=== PATIENT | male | born 1945 | race Caucasian/White ===

== ENCOUNTER 2025-01-25 18:06 | Inpatient (IN) | payer MEDICARE, OTHER, SELFPAY ==
[2025-01-25] VITALS (16 sets, daily range): BP systolic 93–193; BP diastolic 45–120; BMI 22.9
[2025-01-25 16:08] LABS: Glucose - Point of Care 149 mg/dl (70-99)
--- NOTE | 2025-01-25 16:18 | EDRN ---
Propofol drip 20 mcg.
[2025-01-25] MEDS: VERSED 2 MG IV (16:24)
[2025-01-25] MEDS: SUBLIMAZE 75 MCG IV (16:24)
[2025-01-25] MEDS: DIPRIVAN 100 IV (16:25)
[2025-01-25 16:29] LABS: % Basophils 0.5 % (0-2); % Eosinophils 1.9 % (0-6); % Immature Granulocytes 3.1 % (0-0.5); % Lymphocytes 26.4 % (20.5-51.1); % Monocytes 5.3 % (1.7-9.3); % Neutrophils 62.8 % (42.2-75.2); Absolute Basophils 0.1 10^3/uL (0-0.2); Absolute Eosinophils 0.5 10^3/uL (0-0.7); Absolute Immature Granulocytes 0.8 10^3/uL (0-0.05); Absolute Lymphocytes 6.4 10^3/uL (1.2-3.4); Absolute Monocytes 1.3 10^3/uL (0.1-0.6); Absolute Neutrophils 15.3 10^3/uL (1.4-6.5); Hematocrit 42.9 % (39.0-52.0); Hemoglobin 13.7 g/dL (13.0-18.0); Mean Corp Hgb Conc. 31.9 g/dL (33.0-37.0); Mean Corpuscular Hgb 29.1 pg (27.0-31.0); Mean Corpuscular Volume 91.3 fL (80.0-94.0); Mean Platelet Volume 10.8 fL (7.4-10.4); Nucleated Red Blood Cells % 0 % (-); Platelet Count 238 10^3/uL (130-400); Red Cell Dist. Width 15.2 % (11.5-14.5); White Blood Cell Count 24.4 10^3/uL (4.8-10.8)
--- NOTE | 2025-01-25 16:41 | ED.GENMED ---
History of Present Illness
General
Chief Complaint: CODE
Source: ambulance crew
Exam Limitations: clinical condition
Time Seen by Provider: 01/25/25 16:17
History of Present Illness
History of Present Illness:
Patient was on a treadmill apparently fell backwards collapsed hit his head and was unresponsive. A defibrillator was placed which recommended shock. After the shock patient had a pulse and a blood pressure became alert although quiet and not
responding. En route to the hospital became very combative. No other history available.
Past History
Past History
ED Past Medical History: CAD
ED Past Surgical History: Orthopedic and Urological
Phy Exam
Physical Exam
Physical Exam:
GENERAL: Nasal trumpet in place. Very combative. Some clear nasal discharge. Collar in place.
EYE: Orbits normal.
NECK: Collar in place
CARDIAC: Regular rate and rhythm without any obvious murmurs.
LUNGS: Clear breath sounds,normal
ABDOMEN: Soft, without focal tenderness or distention
NEUROLOGICAL: Grossly nonfocal. Moving all extremities. Thrashing around. No response to verbal commands.
SKIN: Warm and dry, abrasion to the lower leg.
MUSCULOSKELETAL: No edema,no deformity.Good color
Course
Orders/Labs/Results
Orders:
Orders
01/25/25 16:05
ECG [Electrocardiogram (*1)] Urgent
Reason for Study: CAD
Other Reason for Exam: post defib
CT Head W/o Iv Contrast Urgent
Comment:
Reason For Exam: Post code
01/25/25 16:06
EKG- Treatment ONCE
01/25/25 16:07
Propofol 1,000,000 Mcg/100 ml [Diprivan] 1,000,000 mcg in 100 ml .ROUTE .STK-MED
Propofol [Diprivan] 20 ml .ROUTE .STK-MED
01/25/25 16:10
Midazolam HCl [Versed] 2 mg .ROUTE .STK-MED ONE
01/25/25 16:14
Cr Chest Portable [CR Chest Portable - 1 View] Stat
Comment:
Reason For Exam: intubation
Reason Study Needs to be Portable: Patient Unstable
01/25/25 16:15
CT Cervical Spine W/o Iv Contr Urgent
Comment:
Reason For Exam: fall/CODE
Midazolam HCl [Versed] 2 mg IV NOW STA
01/25/25 16:16
Fentanyl Citrate/Pf [Sublimaze] 75 mcg IV NOW STA
01/25/25 16:22
ABG [Arterial Blood Gas] Urgent
%Oxygen/Room Air: 50/ac14/5/450
Complete Blood Count/With Diff Urgent
Comprehensive Metabolic Panel Urgent
Glycohemoglobin (HgbA1c) Urgent
Troponin I Urgent
01/25/25 16:25
CT Chest W/o Iv Contrast Urgent
Comment:
Reason For Exam: sp cardiac arrest
01/25/25 16:30
Propofol 1,000,000 Mcg/100 ml [Diprivan] 1,000,000 mcg in 100 ml IV PER PROTOCOL
01/25/25 17:00
FentaNYL 1,000 MCG/100 ML [Sublimaze] 1,000 mcg in 100 ml IV PER PROTOCOL
Fentanyl Citrate/Pf [Sublimaze] 50 mcg IV [id number] PRN
01/25/25 17:04
Add On- LAB Routine
Tests Added?: Hgba1c
01/25/25 17:09
Fentanyl Citrate/Pf [Sublimaze] 100 mcg .ROUTE .STK-MED ONE
Heparin 10,000 units .ROUTE .STK-MED ONE
Midazolam HCl [Versed] 2 mg .ROUTE .STK-MED ONE
Verapamil Injectable [Isoptin/Verapamil Injection] 5 mg .ROUTE .STK-MED ONE
01/25/25 17:10
Heparin 1000 Units/500 ml [Heparin] 1,000 units in 500 ml .ROUTE .STK-MED
Heparin Sodium,Porcine/Ns/Pf [Heparin 2000 Units/1000 ml] 2,000 unit in 1,000 ml .ROUTE .STK-MED
Lidocaine HCl/Pf [Xylocaine-Mpf 1% Vial] 100 mg .ROUTE .STK-MED ONE
Nitroglycerin [Tridil] 1,500 mcg .ROUTE .STK-MED ONE
Abnormal Lab Results
01/25/25 01/25/25
16:07 16:22
WBC 24.4 H 10^3/uL
(4.8-10.8)
MCHC 31.9 L g/dL
(33.0-37.0)
RDW 15.2 H %
(11.5-14.5)
MPV 10.8 H fL
(7.4-10.4)
Abs Immat Gran (auto) 0.8 H 10^3/uL
(0-0.05)
Absolute Neuts (auto) 15.3 H 10^3/uL
(1.4-6.5)
Absolute Lymphs (auto) 6.4 H 10^3/uL
(1.2-3.4)
Absolute Monos (auto) 1.3 H 10^3/uL
(0.1-0.6)
Immature Gran % 3.1 H %
(0-0.5)
pH 7.32 L
(7.35-7.45)
pO2 179 H mmHg
(83-108)
ABG O2 Sat (Measured) 99.7 H %
(94-98)
Sodium 148 H mmol/L
(135-145)
Carbon Dioxide 14 L* mmol/L
(22-30)
BUN 27 H mg/dl
(9-20)
Creatinine 1.4 H mg/dL
(0.7-1.3)
Glucose 166 H mg/dl
(70-99)
AST 377 H U/L
(17-59)
Troponin I 0.039 H* ng/ml
POC Glucose 149 H mg/dl
(70-99)
01/25/25 16:22
01/25/25 16:22
Vital Signs
Initial and Last Documented VS:
Initial Vital Signs
Pulse Resp
120 28
01/25/25 16:09 01/25/25 16:09
Last Documented Vital Signs
Pulse Resp BP Pulse Ox
108 16 193/120 98
01/25/25 17:15 01/25/25 17:15 01/25/25 17:15 01/25/25 17:15
Procedures
Intubations
Procedure completed by: Myself
Method of Intubation: glidescope
Tube size (cm): 7.5
Placement confirmed by: auscutation, CXR, capnography, placement corrected and direct visualization
Breath sounds after intubation: equal
Intubation complications: no complications
*Radiology
Radiology exam reviewed: preliminary read by ED provider (Slight right mainstem.) and radiology read reviewed (Slight right mainstem. CT scans all stable.)
*Pulse Oximetry
Patient hypoxic: no
*EKG
Interpreted by ED Provider?: Yes
Interpretation: abnormal
Comparison EKG: changes noted
Heart Rate: 101
Rate: tachycardiac
Rhythm: sinus and PAC's
Industry: normal axis
Interval: normal interval
QRS Pattern: normal QRS
Ischemia: non-specific ST changes
*Critical Care Note
Total Time (30-74mins, 75-104mins- exclusive of procedures): 45
Data Reviewed
Review of Other/Old Records Reveals: Labs, Records and Testing
Update Note
Update Note:
1640.... Cardiology was contacted immediately. Neurology was also looped in. Critical care physician happy to be done in the ER was updated and involved. was contacted and is coming in.
1705... Multiple rechecks. Heart rate has remained stable. No arrhythmias. Blood pressure slightly elevated. Labs reviewed. Likely reactive leukocytosis. CT scans reviewed. Family updated.
ED Attending Note
-
Portions of this chart may have been created with voice recognition software.� Occasional wrong word or��sound alike� substitutions may have occurred due to the inherent limitations of voice recognition software.
Discharge Plan
Departure
Patient Disposition: Admit
Date of Disposition: 01/25/25
Time of Disposition: 17:08
Admit to: ICU and energy systems laboratory director
Presentation/result/management discussed w/ accepting MD/DO: Neurology/cardiology/inte
Discharge Problem:
Status postcardiac arrest, Change in mental status
Prescriptions:
No Action
atorvastatin 10 MG tablet
20 mg PO QPM
aspirin 81 MG tablet,delayed release (DR/EC)
81 mg PO DAILY
omeprazole 20 MG tablet,delayed release (DR/EC)
20 mg PO QPM
cephalexin [Keflex] 500 MG capsule
500 mg PO BID Qty: 10 0RF
losartan 25 MG tablet
25 mg PO DAILY 30 Days Qty: 30 11RF
Referrals:
UNKNOWN - PT NOT,INTERVIEWE [Family Provider] -
Interventions
Interventions:
*Neglect/Abuse Screening Last Done: 01/25/25 17:08
ED- Cardiac Assessment Last Done: 01/25/25 17:05
ED- Pulmonary Assessment Last Done: 01/25/25 17:02
Discharge Date and Time
Print Language: [place]
--- NOTE | 2025-01-25 16:47 | CON.CAR ---
Addendum entered and electronically signed by Aly Baker DO 01/25/25 17:39:
Attestation: I have seen and examined the patient. I can confirm Ms. Matt's findings and I agree with her assessment and plan as documented.
79-year-old gentleman with hypertension, hyperlipidemia, ischemic cardiomyopathy (LVEF 45-50%) and coronary artery disease status post RI in 2011 with small circumflex range occlusion that was unamenable to PCI now presenting as an [id number]
cardiac arrest. The patient was exercising at [employer] when he collapsed to the ground. EMS reports that bystander assistance was immediate. An AED was applied and 1 shock was delivered. The patient was reportedly moving all extremities,
though he was somewhat combative. He was given sedation as well as paralytic and intubated. CT head shows no evidence of intracranial hemorrhage or major trauma. CT chest is also unrevealing. His EKG shows sinus tachycardia with PACs but is
generally nonischemic. His was interviewed and reports that the patient was noticing a faster than normal heart rate in the past several weeks but denied any specific chest pain or shortness of breath.
On physical exam, the patient is intubated and sedated.
His heart is regular with no obvious murmurs.
His lungs are mildly coarse.
His abdomen is nonacute.
WBC is 24.4.
H&H are normal.
Platelets 238,000.
ABG shows pH 7.32, pCO2 41, PaO2 179.
BMP shows a sodium of 148, potassium 3.6, chloride 107, bicarb 14, BUN 27, creatinine 1.4, glucose 166.
There is transaminitis with an AST of 377 and an ALT of 450.
Initial troponin 0.039.
Given the patient's presentation of shockable rhythm with at least cursory neurologic recovery prior to intubation, there is an indication to proceed with immediate cardiac catheterization with coronary angiography and ad hoc PCI.
Consent was obtained through the patient's after thorough discussion of the risks and benefits.
Plan to admit to ICU after cardiac catheterization.
We will initiate targeted temperature management if he does not show mental responsiveness after lightening sedation.
Original Note:
Consultation
Consultation Request
Date/Time Consultation Requested: 01/25/2025 16:15
Date/Time Consultation Performed: 01/25/2025 16:20
Requesting Provider: Dr. Lynn
Performing Provider: AUSTIN Pierce for Dr. Baker
Reason for Consultation: Cardiac arrest
Medical History
-
Chief Complaint: Cardiac arrest
History of Present Illness:
Alvarez Anne is a 79 year old male (known to Dr. Brannon, his primary intensive care unit registered nurse), CAD (RI 2011), ICM (EF 45-50%), HTN, HLD, GERD, & congenital single kidney presented with cardiac arrest. Mr. Anne was at [employer] on the elliptical. He
suddenly collapsed. [facility] staff placed an AED. Shock was advised and delivered. ROSC. Patient was spontaneously moving all extremities but not following commands. He was intubated in the emergency department. He has an abrasion on his
posterior head and anterior dai. EKG sinus tachycardia with nonspecific ST abnormality. His BMP is pending. Troponin is pending, this will likely be abnormal given his recent defibrillation. CBC with leukocytosis, perhaps reactive. Head CT
being urgently completed. CXR stable.
His has been contacted and is on her way in.
Unable to confirm home medication list at this time.
Past Medical History
Past Medical History: CAD, CHF (ICM [EF 45-50%]), GERD, HTN, Hypercholesterolemia and RI (2011)
Past Surgical History: Orthopedic and Urological
Social History
Tobacco: Other (Unable to obtain)
Alcohol: Other (Unable to obtain)
Drug: Other (Unable to obtain)
Personal:
Living: With Family
Family History
Family History: Unable to Obtain
Allergies / Home Medications
Allergy/AdvReac Type Severity Reaction Status Date / Time
Sulfa (Sulfonamide Allergy Unknown Verified 01/25/25 16:09
Antibiotics)
�Medication �Instructions �Recorded �Confirmed �Type
aspirin 81 mg tablet,delayed 81 mg PO DAILY 01/06/18 01/19/18 History
release
atorvastatin 10 mg tablet 20 mg PO QPM 01/06/18 01/19/18 History
omeprazole 20 mg tablet,delayed 20 mg PO QPM 01/19/18 01/19/18 History
release
cephalexin 500 mg capsule (Keflex) 500 mg PO BID #10 caps 01/20/18 Rx
losartan 25 mg tablet 25 mg PO DAILY 30 days #30 tabs 01/20/18 Rx
Review of Systems
-
Unable to obtain full review of systems at this time due to: Patient Intubation
Physical Exam
Vital Signs
Pulse Resp BP Pulse Ox
100 20 143/75 98
01/25/25 16:16 01/25/25 16:16 01/25/25 16:16 01/25/25 16:16
Lab Results
01/25/25 16:22
Physical Exam
General: Well Developed, Well Nourished and Intubated
HEENT: Other (Posterior head abrasion)
Respiratory: Clear and Other (Mechanical ventilation)
Cardiac: S1/S2 and Regular Rhythm; Negative Peripheral Edema
Breast: Deferred by me
GI: Soft, Non Distended and Normal Bowel Sounds
Rectal: Deferred by Provider
Genito-urinary: No Costovertebral Tender
Musculoskeletal: No Clubbing and No Cyanosis
Skin: Warm and Dry
Neuro: Sedated
Hematologic/Lymphatic: No Lymphadenopathy
Psych: Calm and Other (Sedated)
Impression / Plan
-
I/P: 79M with CAD (RI 2011), ICM (EF 45-50%), HTN, HLD, GERD, & congenital single kidney presented with cardiac arrest.
Outpatient intensive care unit registered nurse: Dr. Brannon
Cardiac arrest
- ROSC after single defibrillation
- Head CT
- Known small branch occlusion of the left circumflex
- Moving all extremities but not following commands prior to intubation and sedation
- Ischemic evaluation to be determined by passenger train braker
- Echocardiogram
Ischemic cardiomyopathy, most recent LVEF 45-50%
- Update echocardiogram
- GDMT as tolerated:
-NATANAEL/ARB/ARNI: Hold losartan
-SGLT2 inhibitor: He did not tolerate Farxiga in the past
-Aldosterone agonist: Can consider
-Beta robbie: Did not tolerate in the past due to bradycardia
-ICD: TBD
- Follow daily weight & I/O
CAD
- Continue aspirin
- Most recent LDL 63 in July, (goal LDL <55) on atorvastatin 80 mg and Zetia 10 mg
Hypertension
Congenital single kidney (right)
Prediabetes, HgbA1c 6.6%
Dyslipidemia, continue statin
SUBJECTIVE:
Intubated and sedated on mechanical ventilation.
DATA:
Transthoracic echocardiogram, 02/19/2021:
CONCLUSIONS
Mildly reduced left ventricular systolic function. Left ventricular ejection
fraction is 45-50%.
Basal to mid inferolateral and inferior hypokinesis.
Mild mitral regurgitation.
Trace to mild aortic regurgitation.
No significant change since the prior study of 2018.
Data Reviewed
-
EKG: Report Reviewed by me (As above)
Radiology: Report Reviewed by me
CT Scan: Report Reviewed by me
Medical Tests (Nuc Med, Echo etc): Report Reviewed by me
Labs: Labs Reviewed by me
Old Records: Reviewed
[2025-01-25 16:55] LABS: AST (SGOT) 377 U/L (17-59); Alkaline Phosphatase 52 U/L (38-126); Blood Urea Nitrogen 27 mg/dl (9-20); Calcium 8.7 mg/dl (8.4-10.2); Carbon Dioxide 14 mmol/L (22-30); Chloride 107 mmol/L (98-107); Glucose 166 mg/dl (70-99); Potassium 3.6 mmol/L (3.5-5.1); Sodium 148 mmol/L (135-145); Total Bilirubin 0.8 mg/dl (0.2-1.3); Total Protein 7.2 g/dl (6.3-8.2); eGFR 51.77
[2025-01-25] MEDS: SUBLIMAZE 100 IV (16:59)
[2025-01-25 17:08] LABS: B.E. -4.8 mmol/L; HCO3 21.1 mmol/L (21-28); O2 Saturation % 99.7 % (94-98); O2 Therapy Air 50/ac14/5/450; PCO2 41 mmHg (35-48); PO2 179 mmHg (83-108); pH 7.32 (7.35-7.45)
[2025-01-25 17:11] LABS: Troponin I 0.039 ng/ml
[2025-01-25] MEDS: SUBLIMAZE 50 MCG IV (17:20)
[2025-01-25 17:32] LABS: ALT (SGPT) 450 U/L (0-50)
--- NOTE | 2025-01-25 17:56 | HPS.HSE ---
Family Physician
-
Family Physician: INTERVIEWE UNKNOWN - PT NOT
Chief Complaint
-
cardiac arrest
History of Present Illness
79-year-old male past medical history of CAD status post stent in 2009, hyperlipidemia, solitary kidney, polio as a child, hearing loss, presenting for cardiac arrest. Patient exercises regularly but tends to overexert himself at times. He was on
a treadmill at [employer] and fell backwards and collapsed and hit his head and became unresponsive. Staff nearby quickly placed AED which recommended shock. After shock patient had a pulse and blood pressure and became alert but was quiet and
not responding. He was combative en route to the hospital. He was noted to be combative in the emergency room and therefore was intubated.
He did not have any recent chest pain or shortness of breath. Family notes that his heart rate has been elevated for the past few weeks after exercise.
He has extensive history of CAD in the family. His father had CAD. His sister had heart transplant.
He does not have a smoking or drug history. He only very rarely drinks alcohol.
Medical History
Past Medical History
Past Medical History: Reports Other
Past Surgical History: Reports Other ( Shoulder surgery, hip surgery, appendectomy)
Social History
Tobacco: Non-smoker
Alcohol: None
Drug: None
Family History
Family History: Not pertinent
Allergies / Home Medications
Allergies reflects when Allergies were last updated in [facility].
Home Medications with original date entered in [facility]
Allergy/Medication List:
Allergies
Allergy/AdvReac Type Severity Reaction Status Date / Time
Sulfa (Sulfonamide Allergy Unknown Verified 01/25/25 16:09
Antibiotics)
Home Medications
aspirin 81 mg tablet,delayed release 81 mg PO DAILY 01/06/18
atorvastatin 10 mg tablet 20 mg PO QPM 01/06/18
omeprazole 20 mg tablet,delayed release 20 mg PO QPM 01/19/18
cephalexin 500 mg capsule (Keflex) 500 mg PO BID #10 caps 01/20/18
losartan 25 mg tablet 25 mg PO DAILY 30 days #30 tabs 01/20/18
Review of Systems
-
History Source: Patient
A 12 point ROS was completed and negative except as noted: Yes
Constitutional: Reports No Symptoms
EENT: Reports No Symptoms
Respiratory: Reports No Symptoms
Cardiac: Reports No Symptoms
Abdomen/GI: Reports No Symptoms
: Reports No Symptoms
Musculoskeletal: Reports No Symptoms
Skin: Reports No Symptoms
Neurological: Reports No Symptoms
Endocrine: Reports No Symptoms
Hematologic/Lymphatic: Reports No Symptoms
Psych: Reports No Symptoms
Physical Exam
Vital Signs
Vital Signs
Pulse Resp BP Pulse Ox
108 16 193/120 98
01/25/25 17:15 01/25/25 17:15 01/25/25 17:15 01/25/25 17:15
Physical Exam
General: Well Developed, Well Nourished and No Apparent Distress
HEENT: NormoCephalic, Moist mucous membranes and Atraumatic
Respiratory: Clear
Cardiac: S1/S2 and Regular Rhythm; No Murmur or Rub
GI: Soft, Non Tender, Non Distended and Normal Bowel Sounds; No Organomegaly
Rectal: Deferred by Provider
Musculoskeletal: No Clubbing, No Cyanosis and No Edema
Skin: No Rash
Neuro: Nonfocal/grossly intact
Laboratory Results
-
01/25/25 16:22
01/25/25 16:22
Laboratory Results
pH 7.32 (7.35-7.45) L 01/25/25 16:22
pCO2 41 mmHg (35-48) 01/25/25 16:22
pO2 179 mmHg (83-108) H 01/25/25 16:22
HCO3 21.1 mmol/L (21-28) 01/25/25 16:22
Total Bilirubin 0.8 mg/dl (0.2-1.3) 01/25/25 16:22
AST 377 U/L (17-59) H 01/25/25 16:22
ALT 450 U/L (0-50) H 01/25/25 16:22
Alkaline Phosphatase 52 U/L (38-126) 01/25/25 16:22
Troponin I 0.039 ng/ml H* 01/25/25 16:22
Data Reviewed
-
Lab Data: Labs Reviewed by me
Old Records: Reviewed
Impression/Plan
-
IMPRESSION:
PLAN:
# Cardiac arrest likely secondary to arrhythmia versus ACS
-EKG shows sinus tachycardia with premature supraventricular complexes, subtle ST depressions in V5 V6
- Troponin of 0.039
- Cardiology consulted and patient to go to [facility] Al[facility]
- CT chest shows marked bilateral dependent subsegmental atelectasis, left posterior eighth rib fracture, cannot exclude mild pulmonary edematous changes
- CT head, cervical spine unremarkable
- Patient to urgently go to [facility]
- Patient on propofol, fentanyl
- Creative Project Manager, neurology consulted
# ABISAI secondary to cardiac arrest
# Non-anion gap metabolic acidosis
-Bicarb push
- Bicarb drip
# Hypernatremia
-Monitor with bicarb drip
# Transaminitis likely secondary to shock liver from cardiac arrest
-Continue to monitor
Hyperlipidemia
History of solitary kidney
Polio as a child
Hearing loss
Full code
DVT prophylaxis�heparin
N.p.o.
[2025-01-25 18:17] LABS: ACT-LR - POC 329 Seconds (116-155)
--- NOTE | 2025-01-25 18:46 | ITS.CL.ANGIO ---
Mail Messenger - Angioplasty
Angioplasty
Procedure Report:
CARDIAC CATHETERIZATION REPORT
Date of Procedure: 01/25/2025
Referring: Robert Lynn M.D.
INDICATION: [id number] cardiac arrest, shockable rhythm.
PROCEDURE:
1. Left heart catheterization.
2. Coronary angiography
3. Intravascular ultrasound.
4. Successful PCI of the proximal LAD.
A total of 55 minutes of procedural/moderate sedation was utilized. An independent medical billing assistant was present to assist with and help manage the patient's level of consciousness and physiologic status.
ACCESS:
1. 6 Vietnamese right radial artery using a modified Seldinger technique.
CATHETERS:
1. 5 Vietnamese JR4.
2. 5 Vietnamese JL 3.5.
3. 6 Vietnamese EBU 3.5 guiding catheter.
HEMODYNAMIC DATA
Weight (kg): 77.6
AO (s/d/x, mmHg): 108/67/85
LV (s/x mmHg): 108/15
LEFT VENTRICULOGRAPHY: Not performed.
CORONARY ANGIOGRAPHY
Dominance: Right.
Left Main: Normal size, bifurcating vessel. There is no coronary artery disease.
LAD: Normal size vessel giving rise to 1 significant diagonal. There is a 75-80% lesion in the proximal vessel followed by a hazy, 50% lesion.
Ramus: Congenitally absent.
Circumflex: Normal size, nondominant vessel giving rise to 2 obtuse marginals. OM1 is a substantial vessel supplying the majority of the anterolateral wall. OM 2 is chronically totally occluded with both bridging and retrograde collaterals.
RCA: Large size, dominant vessel with a significant posterolateral arcade. There is a 60% lesion in the RPL as it turns towards the apex.
INTERVENTION(S)
1. Successful IVUS guided PCI of the tandem 75-80% and 50% proximal LAD lesions (Medtronic [place] 3.5 x 26 ISMAEL, postdilated with a 3.5 NC balloon throughout and a 4.0 x 8 NC balloon in the proximal margin) with reduction in both stenoses to
0%, maintaining PATRICIA-3 flow.
Narrative:
The decision was made to proceed with percutaneous coronary intervention. The diagnostic catheter was removed over a wire and a 6Fr EBU 3.5 guiding catheter was advanced to the aortic root and seated in the left main coronary artery. Additional
heparin was given and a Power Turn Flex wire was advanced into the distal LAD. The tandem 75-80% and 50% proximal LAD lesions were predilated with a 2.0 x 12 semi-compliant balloon to 12 omar.
The decision was made to perform intracoronary imaging. An IVUS catheter was advanced through the guiding catheter and into the ostium of the artery. Ring down was performed once the imaging crystal was no longer inside of the guiding catheter. The
IVUS catheter was advanced into the mid LAD, beyond the first diagonal. Intravascular ultrasound was performed in a retrograde fashion using a slow pullback. Intracoronary imaging demonstrated tandem atherosclerotic lesions with a focus of calcium
in the proximal margin of the 50% lesion. Vessel measurements were obtained.
The IVUS catheter was removed and a Medtronic [place] Faulkner 3.5 x 26 drug-eluting stent was advanced. The stent was deployed at 12 atmospheres. The stent balloon was removed. A 3.5 x 15 noncompliant balloon was advanced into the stent and the stent
was postdilated to 15 atmospheres. The noncompliant balloon was withdrawn and a 4.0 x 8 noncompliant balloon was advanced. The proximal stent margin was postdilated to 16 omar. Angiography showed good stent expansion with a significant down step
immediately after the stented segment near the origin of D1. Nitroglycerin 150 mcg was given intracoronary. Repeat angiography showed resolution of LAD spasm and normalization of the taper between the stent and vessel. IVUS was repeated
demonstrating excellent stent apposition and expansion throughout the entire stented segment.
Angiography was performed in orthogonal views, confirming good stent expansion and an excellent angiographic result. The coronary wire was withdrawn and the guide was disengaged from the artery. The catheter was removed over a standard J-wire.
Closure Device: Vascular band
Radiation (mGy): 672.63
DAP (cm2.Gy): 59.7610
Fluoroscopy time (minutes): 9.5
CONCLUSIONS
1. Right dominant circulation with chronic total occlusion of the second obtuse marginal, a 60% lesion in the RPL as it turns towards the apex and tandem 75-80% and 50% lesions in the proximal LAD, status post successful PCI to the LAD lesions
(Medtronic [place] 3.5 x 26 ISMAEL, postdilated with a 3.5 NC balloon throughout and a 4.0 x 8 NC balloon in the proximal margin) with reduction in both stenoses to 0%, maintaining PATRICIA-3 flow.
2. Mildly elevated filling pressures (LVEDP = 15 mmHg at 77.6 kg).
RECOMMENDATIONS:
1. Expectant management after cardiac catheterization via right radial approach.
2. Limited weight bearing on the right wrist for one week.
3. Dual antiplatelet therapy with aspirin and ticagrelor for at least 12 months, followed by aspirin indefinitely.
4. Continue aggressive secondary prevention with high-dose, high potency statin. Goal LDL <55.
5. OMT/GDMT as hemodynamics will tolerate.
6. Echocardiogram ordered and pending.
7. Begin to wean sedation with a view towards extubation.
8. Given his movement of all 4 extremities, there is no current role for targeted temperature management.
9. While revascularization of the LAD may lessen his underlying risk, his presentation of sudden cardiac with chronic total occlusion of OM 2 will likely obligate him to secondary prevention ICD.
10. Referral to cardiac rehab once he has been extubated and neurologic recovery has been established.
Copy to: Gabriela Brannon M.D., Robert aRza D.O., Roldan Pichardo M.D.
Aly Baker DO, FACC, FACP
[2025-01-25 19:39] LABS: Glucose - Point of Care 140 mg/dl (70-99)
--- NOTE | 2025-01-25 20:00 | PTCARENOTE ---
Rec`d pt at 1999 from [facility] intubated and sedated on prop and fent. BICARB gtt started. C collar on pt. Posterior head lac continues to bleed. Rt radial TR band in place. +pulses. POX 100% on right hand. SR on monitor w/ pvcs. Afebrile, rectal
temp prob. 7.5 ETT @24. ac vent settings 14/450/60%/5 of peep. PIVS flushed and patent. left nare josuém @70 [place]. CC placed #30. Left anterior dai abrasion covered with ABD. Posterior head continues to bleed. Covered w/ ABD gauze. rt anterior dai
small abrasion prior to admission open to air. restraints. Family at bedside. safe environment maintained.
--- NOTE | 2025-01-25 20:03 | RESPNOTE ---
ETT pulled back 1 cm to 24
[2025-01-25] MEDS: SODIUM BICARBONATE 50 MEQ IV (20:14)
[2025-01-25] MEDS: SODIUM BICARBONATE 1150 MEQ IV (20:15)
[2025-01-25] MEDS: HEPARIN 5000 UNITS SC (20:38)
[2025-01-25] MEDS: LIPITOR 40 MG TUBE (20:41)
[2025-01-25 21:13] LABS: Troponin I 0.128 ng/ml
[2025-01-25 21:39] LABS: Hematocrit 40.2 % (39.0-52.0); Hemoglobin 13.3 g/dL (13.0-18.0)
[2025-01-25 21:50] LABS: PT 15.5 Sec (11.4-14.6)
[2025-01-25 21:52] LABS: B.E. 3.6 mmol/L; HCO3 26.5 mmol/L (21-28); O2 Saturation % 99.6 % (94-98); PCO2 34 mmHg (35-48); PO2 231 mmHg (83-108)
[2025-01-25 22:02] LABS: Blood Urea Nitrogen 29 mg/dl (9-20); Calcium 8.7 mg/dl (8.4-10.2); Carbon Dioxide 27 mmol/L (22-30); Chloride 105 mmol/L (98-107); Estimated Creatinine Clearance 46 ml/min; Glucose 128 mg/dl (70-99); Magnesium 1.8 mg/dl (1.6-2.3); Sodium 143 mmol/L (135-145); Triglycerides 74 mg/dl (10-149); eGFR 56.58
[2025-01-25 22:06] LABS: APTT > 200 Sec (23.4-35.0)
[2025-01-26] VITALS (39 sets, daily range): BP systolic 93–180; BP diastolic 55–113; BMI 22.9
--- NOTE | 2025-01-26 | PTCARENOTE ---
head lac continues to bleed. saturated ABD gauze and towel behind it. AUSTIN Corona aware.
[2025-01-26 00:33] LABS: Glucose - Point of Care 97 mg/dl (70-99)
[2025-01-26] MEDS: SUBLIMAZE 100 IV (00:55)
[2025-01-26] MEDS: DIPRIVAN 100 IV ×2 (03:30→08:26)
[2025-01-26] MEDS: UNASYN IV ×4 (03:31→20:31)
[2025-01-26 03:40] LABS: Hematocrit 38.1 % (39.0-52.0); Hemoglobin 12.6 g/dL (13.0-18.0); Mean Corp Hgb Conc. 33.1 g/dL (33.0-37.0); Mean Corpuscular Hgb 29.4 pg (27.0-31.0); Mean Corpuscular Volume 88.8 fL (80.0-94.0); Mean Platelet Volume 11.2 fL (7.4-10.4); Platelet Count 194 10^3/uL (130-400); Red Blood Cell Count 4.29 10^6/uL (4.70-6.10); Red Cell Dist. Width 15.2 % (11.5-14.5); White Blood Cell Count 14.5 10^3/uL (4.8-10.8)
[2025-01-26] MEDS: SUBLIMAZE 50 MCG IV (03:45)
[2025-01-26 04:08] LABS: ALT (SGPT) 365 U/L (0-50); AST (SGOT) 268 U/L (17-59); Albumin 4.3 g/dl (3.5-5.0); Alkaline Phosphatase 50 U/L (38-126); Blood Urea Nitrogen 27 mg/dl (9-20); Calcium 8.6 mg/dl (8.4-10.2); Carbon Dioxide 30 mmol/L (22-30); Chloride 103 mmol/L (98-107); Direct Bilirubin 0.2 mg/dl (0.0-0.4); Estimated Creatinine Clearance 50 ml/min; Glucose 109 mg/dl (70-99); HDL Cholesterol 40 mg/dl; LDL Cholesterol, Calculated 30 mg/dl; Magnesium 1.7 mg/dl (1.6-2.3); Phosphorus 3.3 mg/dl (2.5-4.5); Potassium 4.1 mmol/L (3.5-5.1); Sodium 142 mmol/L (135-145); Total Bilirubin 0.9 mg/dl (0.2-1.3); Total Cholesterol 98 mg/dl (50-199); Total Protein 6.4 g/dl (6.3-8.2); Triglyceride 144 mg/dl (10-149); Very Low Density Lipoprotein 28 mg/dl (0-30); eGFR > 60.00
[2025-01-26 04:13] LABS: B.E. 5.8 mmol/L; HCO3 27.5 mmol/L (21-28); PCO2 30 mmHg (35-48); PO2 116 mmHg (83-108); pH 7.57 (7.35-7.45)
[2025-01-26 04:17] LABS: Troponin I 0.456 ng/ml
[2025-01-26] MEDS: MAGNESIUM SULFATE 102 GRAMS IV (05:31)
[2025-01-26 05:35] LABS: Glucose - Point of Care 115 mg/dl (70-99)
--- NOTE | 2025-01-26 05:40 | PTCARENOTE ---
No changes in pt assessment. prop and fent gtt continued. Bicarb gtt D/C. pt bladder scanned and straight cathed. CC #25 placed back on.
--- NOTE | 2025-01-26 07:49 | W.PN.HOSP.TC ---
Today's Communication/Plan
-
Weaning sedation
Assessment / Plan
Assessment / Plan
Impression:
Patient is 79 years old with history of hypertension, ischemic cardiomyopathy, hyperlipidemia, coronary artery disease who came to the hospital as [id number] cardiac arrest, patient was at [employer] when he collapsed to the ground, AED was
applied and 1 shock was delivered, patient came to the ER and straight to cardiac cath where he had a stent to proximal LAD.
Patient currently intubated and sedated in the ICU
Assessment/plan:
[id number] cardiac arrest concern of V-fib arrest
-EKG shows sinus tachycardia with premature supraventricular complexes, subtle ST depressions in V5 V6
- Troponin of 0.039
- Cardiology consulted status post urgent cardiac cath and proximal LAD stent
- CT chest shows marked bilateral dependent subsegmental atelectasis, left posterior eighth rib fracture, cannot exclude mild pulmonary edematous changes
- CT head, cervical spine unremarkable
Currently intubated and sedated in the ICU
Seen by cardiology who recommended AICD for concern of V-fib arrest
Coronary artery disease status post cardiac cath and stent.
Patient underwent emergent cardiac cath with successful PCI of the tandem 75 to 80% and 50% of proximal LAD lesions
Aspirin, atorvastatin, Brilinta
Acute hypoxic respiratory failure secondary to cardiac arrest.
Status post intubation, currently
ABISAI secondary to cardiac arrest
Creatinine improved
Non-anion gap metabolic acidosis
Gap closed
Hypernatremia
Improved
Transaminitis likely secondary to shock liver from cardiac arrest
Improving
Hyperlipidemia
Continue statin
History of solitary kidney
Polio as a child
Hearing loss
CODE STATUS: Full code
DVT prophylaxis: Heparin
Diet: NPO
Family communication: Discussed with family at bedside
Disposition: Weaning sedation as per protocol
Total time spent on today's encounter was 75 minutes which included time spent in counseling the patient/family regarding diagnosis and treatment plan as listed above, goals of care, and symptom management. Case was discussed with nursing staff,
specialists, and care coordinators/case management. All labs and imaging personally reviewed by me. Remainder the time spent in detailed review of previous records, lab data, imaging, and other medical provider documentation.
Anticipated Discharge: > 48 hours
Subjective/Interval History
-
Date of Service: January 26, 2025
Patient is currently intubated and sedated, discussed with family at bedside
Objective Data
-
Labs:
Laboratory Results
01/25/25 01/25/25 01/26/25
21:33 21:44 03:23
WBC 14.5 H
Hgb 13.3 12.6 L
Hct 40.2 38.1 L
Plt Count 194
PT 15.5 H
INR 1.20
APTT > 200 H*
HCO3 26.5
Sodium 143 142
Potassium 5.0 D 4.1
Chloride 105 103
Carbon Dioxide 27 30
BUN 29 H 27 H
Creatinine 1.3 1.2
Glucose 128 H 109 H
Calcium 8.7 8.6
Total Bilirubin 0.9
AST 268 H
ALT 365 H
Alkaline Phosphatase 50
01/26/25
04:05
WBC
Hgb
Hct
Plt Count
PT
INR
APTT
HCO3 27.5
Sodium
Potassium
Chloride
Carbon Dioxide
BUN
Creatinine
Glucose
Calcium
Total Bilirubin
AST
ALT
Alkaline Phosphatase
Vital Signs:
Vital Signs
Temp Pulse Resp BP Pulse Ox
100.1 F 70 9 122/61 100
01/26/25 07:00 01/26/25 05:30 01/26/25 05:30 01/26/25 05:30 01/26/25 07:20
I&O
01/25/25 01/26/25 01/27/25
06:59 06:59 06:59
Intake Total 1012.6 / 1012.6
Output Total 575 / 575
Balance 437.6 / 437.6
Physical Exam
-
General: Intubated
HEENT: Other (Scalp wound dressing)
Respiratory: Rales, Rhonchi and Non Labored Respirations
Cardiac: Regular Rhythm and S1/S2
GI: Soft, Nondistended and Normal Bowel Sounds
Musculoskeletal: No Clubbing, No Cyanosis and No Edema
Skin: Warm
Neuro: Sedated
Psych: Other (Sedated)
Data Reviewed
-
Diagnostic Radiology: Image personally visualized and interpreted and Report Reviewed by me
CT Scan: Image personally visualized and interpreted and Report Reviewed by me
Ultrasound: Image personally visualized and interpreted and Report Reviewed by me
MRI: Image personally visualized and interpreted and Report Reviewed by me
Medical Tests (Nuc Med, Echo etc): Image personally visualized and interpreted and Report Reviewed by me
Labs: Labs Reviewed by me
Old Records: Reviewed
--- NOTE | 2025-01-26 08:00 | CON.NEURO ---
Neuro Assessment/Plan
Assessment
Acute onset change in mental status at the time of cardiac event.
Most likely due to cerebral hypoxia which was transient and not clearly currently indicative of permanent severe neurological injury
Plan
Supportive care
No clear evidence patient would benefit from additional neuroimaging or EEG testing at this time
Will follow as needed
Consultation
Order
Date of Consultation: 01/26/25
Requesting Provider: Hospitalist
Reason for Consult: Change in mental status
Subjective/Objective
Subjective Data
Date of Service: January 26, 2025
Patient presented to this hospital's emergency department after collapse while on a treadmill. Patient's medical history is obtained after review of the patient's medical records and discussion with professional medical care providers as the
patient himself is intubated and unable to produce his history at this time.
The patient reportedly was in his usual state of health until the above listed incident. The patient was described as being less responsive than usual upon collapse and automatic defibrillator applied at the site indicated the patient required a
shock to restore regular rhythm. Patient was then described as being combative and was intubated for airway protection.
Objective Data
Vital Signs
Temp Pulse Resp BP Pulse Ox
37.8 C 70 9 122/61 100
01/26/25 07:00 01/26/25 05:30 01/26/25 05:30 01/26/25 05:30 01/26/25 07:20
Lab Results
01/26/25 03:23
01/26/25 03:23
PT 15.5 Sec (11.4-14.6) H 01/25/25 21:33
INR 1.20 01/25/25 21:33
APTT > 200 Sec (23.4-35.0) H* 01/25/25 21:33
Sodium 142 mmol/L (135-145) 01/26/25 03:23
Potassium 4.1 mmol/L (3.5-5.1) 01/26/25 03:23
BUN 27 mg/dl (9-20) H 01/26/25 03:23
Glucose 109 mg/dl (70-99) H 01/26/25 03:23
Calcium 8.6 mg/dl (8.4-10.2) 01/26/25 03:23
Phosphorus 3.3 mg/dl (2.5-4.5) 01/26/25 03:23
LDL Cholesterol, Calc 30 mg/dl 01/26/25 03:23
Patient Allergies
Sulfa (Sulfonamide Antibiotics) Allergy (Verified 01/25/25 16:09)
Unknown
Review of Systems
-
Unable to obtain full review of systems at this time due to: Patient Intubation
History Source: Patient
All other systems: Reviewed and negative
Physical Exam
-
General: No Apparent Distress, Intubated and Appears Stated Age
Eyes: Round OU and [place] Conjunctivae; Negative Able to visualize OU
HEENT: Anicteric and Moist Mucous Membranes
Neck: Full Range of Motion
Respiratory: No Dyspnea
Cardiac: No JVD
GI: Non-distended
Skin: Unremarkable
Extremities: No Clubbing, No Cyanosis and No Edema
Psych: Unable to Assess
Extended Neurological Exam
Mood & Affect: Unable to Assess
Attention Span & Concentration: Awake, Alert and Interactive
Memory: Unable to Assess
Tremor: Head Tremor Absent and Amplitude (Medium); Negative Hand Tremor Absent (With action)
Involuntary Movement: None
Speech: Unable to Assess
Cranial Nerve II: Left Eye: Pupillary Reactivity Unremarkable and Pupillary Size Unremarkable
Cranial Nerve II: Right Eye: Pupillary Reactivity Unremarkable and Pupillary Size Unremarkable
Cranial Nerves III, IV, : Extraocular Movement: Extraocular Movement Full in all Directions
Cranial Nerve VII: Facial Symmetry: Normal Facial Symmetry
Cranial Nerve VIII: Hearing: Unremarkable Hearing to Normal Conversational Volume
Cranial Nerves IX, X: Palate Movement: Unable to Assess
Cranial Nerve XI: Shoulder Shrug: Unable to Assess
Cranial Nerve XII: Tongue Protusion: Unable to Assess
Muscle Strength, Overall: Spontaneously Moves
Muscle Bulk & Tone: Bulk Unremarkable and Tone Unremarkable
Pronator Drift: No Drift in Upper Extremities
Deep Tendon Reflexes: Unremarkable Throughout
Cold Sensation: Unable to Assess
Vibration Sensation: Unable to Assess
Touch Sensation: Unremarkable
Coordination: Unable to Assess
Babinski Sign: Absent Bilaterally
Gait & Station: Unable to Assess
Data Reviewed
-
CT Head: Report Reviewed
Labs: Report Reviewed
Reviewed with: Physician, Patient and Family
Old Records: Summarized
Medications
-
Active Medications
Generic Name Dose Route Start Last Admin
Trade Name Freq PRN Reason Stop Dose Admin
Acetaminophen 650 mg 01/25/25 19:07
Acetaminophen 650 Mg Rectal Suppository RECTAL 02/22/25 19:06
[id number] PRN
mild pain/MATHEW/temp> 100.4F
Aspirin 81 mg 01/26/25 08:00
Aspirin 81 Mg Chewable Tablet TUBE 02/23/25 07:59
DAILY YANE
Atorvastatin Calcium 40 mg 01/25/25 20:00 01/25/25 20:41
Atorvastatin (Lipitor) 40 Mg Tablet TUBE 02/22/25 19:59 40 mg
QPM YANE Administration
Bisacodyl 10 mg 01/25/25 19:07
Bisacodyl 10 Mg Rectal Suppository RECTAL 02/22/25 19:06
[id number] PRN
constipation
Fentanyl Citrate 50 mcg 01/25/25 19:56 01/26/25 03:45
Fentanyl (50 Mcg/Ml) 100 Mcg/2 Ml Ampul IV 02/08/25 19:55 50 mcg
[id number] PRN Administration
see protocol
Protocol
Heparin Sodium 5,000 units 01/25/25 20:00 01/25/25 20:38
Heparin 5,000 Units/Ml 1 Ml Vial SC 02/22/25 19:59 5,000 units
Q12 YANE Administration
Sodium Chloride 1,000 mls @ 0 mls/hr 01/25/25 19:30
Nss IV 01/26/25 19:28
PER PROTOCOL YANE
Protocol
Per Protocol
Fentanyl Citrate 1,000 mcg in 100 mls @ 0 mls/hr 01/25/25 20:00 01/26/25 00:55
Sublimaze IV 100 mls
PER PROTOCOL YANE Administration
Protocol
Per Protocol
Propofol 1,000,000 mcg in 100 mls @ 0 mls/hr 01/25/25 20:00 01/26/25 03:30
Diprivan IV 100 mls
PER PROTOCOL YANE Administration
Protocol
Per Protocol
Ampicillin Sodium/Sulbactam 120 mls @ 240 mls/hr 01/26/25 02:00 01/26/25 03:31
Sodium 3 gm/ Sodium Chloride IV 120 mls
Q6H YANE Administration
Nitroglycerin 0.4 mg 01/25/25 19:26
Nitroglycerin 0.4 Mg Sl Tablet SL 01/26/25 19:27
[id number] PRN
chest pain or SBP > 150 mmHg
Polyethylene Glycol 17 grams 01/25/25 19:07
Polyethylene Glycol Powder 17 Grams Packet PO 02/22/25 19:06
DAILYPRN PRN
constipation
Senna/Docusate Sodium 1 tablet 01/25/25 19:07
Docusate W/Senna (Alexandrea-Colace) Tablet PO 02/22/25 19:06
BIDPRN PRN
constipation
Sodium Chloride 0 flush 01/25/25 20:00
Sodium Chloride 0.9% (Flush) Syringe IV 02/22/25 19:59
PER PROTOCOL YANE
Ticagrelor 90 mg 01/26/25 08:00
Ticagrelor (Brilinta) 90 Mg Tablet PO 02/23/25 07:59
BID YANE
Home Medications
�Medication �Instructions �Recorded
aspirin 81 mg tablet,delayed 81 mg PO DAILY 01/06/18
release
losartan 25 mg tablet 25 mg PO DAILY 30 days #30 tabs 01/20/18
atorvastatin 80 mg tablet 80 mg PO QPM 01/25/25
ezetimibe 10 mg tablet 10 mg PO DAILY 01/25/25
Past History
Past History
ED Past Medical History: CAD, Cancer (skin), GERD, Hypercholesterolemia, [place] and Other (cardiac arrest , congenital single right kidney, rectal bleed, polio as child)
ED Past Surgical History: Appendectomy, Cardiac (stenting ), Orthopedic (right shoulder 2017, right ABHI 2022), Urological (TURP ) and Other (skin CA excision)
Social History
Tobacco: Non-smoker
Alcohol: None
Personal:
Living: with family
Family History
Family History: CAD and Other (reviewed and non-contributory)
--- NOTE | 2025-01-26 08:06 | CON.INTV ---
Consultation
Consultation Request
Date/Time Consultation Requested: 01/25/2025 - 1906
Date/Time Consultation Performed: 01/26/2025 - 754
Requesting Provider: AUSTIN Loomis
Performing Provider: Dr. Ramos
Reason for Consultation: Out of hospital cardiac arrest
Medical History
-
Chief Complaint: Collapsed at gym
History of Present Illness:
79-year-old non-smoker with a past medical history of CAD with history of [place] (2011) with no interventions done at the time, large scalp actinic keratosis, ED, dyslipidemia and hypertension who presents after he collapsed at a gym and found to be in
cardiac arrest. Patient was at [employer] and was using the elliptical when he fell backwards, hit his head and then became unresponsive. Staff nearby recognized he was unresponsive, placed the AED on him which recommended the shock, which was
delivered. After the shock, patient had a pulse and blood pressure and became alert but was minimally responsive and combative en route to the hospital. He was intubated in the ER, and noted to be tachycardic to 120, BP initially 143/75 and was
saturating 97%. Initial temperature via rectal thermometer was 96.6 �F. Initial labs showed leukocytosis to 24.4, Hb 13.7, absolute eosinophils 500, pH 7.32 on blood gas, serum sodium 148, serum bicarbonate 14, creatinine 1.4, and troponin
initially 0.039. Initial CT head showed no acute intracranial abnormality, and CT cervical spine also showed no acute fracture. CXR showed no pneumothorax with suspected increased pulmonary vascularity. CT chest also obtained showing
posterior/basilar subpleural opacification with significant bronchial wall thickening and an infiltrate in the left base, with left posterior eighth rib fracture suspected to be remote. Cardiology was consulted given his initial shockable rhythm,
and given that he had apparent neurological recovery prior to intubation in the ER, he was brought to the Change Room Attendant where there were tandem 75-80% and 50% proximal LAD lesions and he had a ISMAEL x 1 placed. After the cath, he was brought to the ICU
for further care. [facility] services consulted for additional management/recommendations.
When I saw the patient this morning, he was intubated and being started on a pressure support trial on 06/30, which I lowered to 01/28. His 3 children, Ole, Torey, and Stephenie all at bedside in addition to his , Angela, and all questions were
answered. Heart rate 96, BP 150/86 and saturating 97% on 40% FiO2. He is awake, able to lift up his head, giving a thumbs up on both hands, and in no acute distress.
PMHx: CAD with history of [place] (2011), GERD, large scalp actinic keratosis, ED, dyslipidemia, hypertension, history of polio as a child, hearing loss, solitary kidney (congenital)
PSHx: TURP, right shoulder surgery, left ankle skin cancer surgery, right�ABHI
Past Medical History
Past Medical History: Other (Above as per HPI)
Past Surgical History: Other (Above as per HPI)
Social History
Tobacco: Non-smoker
Alcohol: Occasional
Drug: None
Personal:
Living: With Family ( = Angela)
Family History
Family History: CAD (Father), Hypertension (Mother) and Other (Sister: Heart transplant)
Allergies / Home Medications
Allergies
Allergy/AdvReac Type Severity Reaction Status Date / Time
Sulfa (Sulfonamide Allergy Unknown Verified 01/25/25 16:09
Antibiotics)
Home Medications
�Medication �Instructions �Recorded �Confirmed �Last Taken �Type
aspirin 81 mg tablet,delayed 81 mg PO DAILY 01/06/18 01/19/18 01/15/18 History
release
losartan 25 mg tablet 25 mg PO DAILY 30 days #30 tabs 01/20/18 01/25/25 Unknown Rx
atorvastatin 80 mg tablet 80 mg PO QPM 01/25/25 01/25/25 Unknown History
ezetimibe 10 mg tablet 10 mg PO DAILY 01/25/25 01/25/25 Unknown History
Review of Systems
-
Unable to Obtain full review of systems at this time due to: Patient Intubation
Vitals / Labs / Diagnostic Testing
Vital Signs
Temp Pulse Resp BP Pulse Ox
100.1 F 92 16 180/87 100
01/26/25 07:00 01/26/25 09:30 01/26/25 09:30 01/26/25 09:30 01/26/25 09:30
Lab Data
01/26/25 03:23
01/26/25 03:23
Laboratory Results
01/25/25 01/25/25 01/25/25
16:22 21:33 21:44
PT 15.5 H
INR 1.20
APTT > 200 H*
pH 7.32 L 7.50 H
pCO2 41 34 L
pO2 179 H 231 H
HCO3 21.1 26.5
O2 Delivery Level Air 50/ac14/5/450
01/26/25
04:05
PT
INR
APTT
pH 7.57 H
pCO2 30 L
pO2 116 H
HCO3 27.5
O2 Delivery Level
Diagnostic Testing:
Physical Exam
-
HEENT: Normocephalic, Anicteric and Other (ETT in place)
Cardiovascular: S1/S2 and Peripheral Edema (negative)
Respiratory: Wheeze (negative), Rales (Bilateral), Rhonchi (negative) and Other (Mechanical breath sounds heard bilaterally)
GI: Soft, Non Distended, Non Tender and Normal Bowel Sounds
Neurology: Awake, Alert, Tremors (negative) and Other (Following all commands)
Skin: Warm and Dry
General: Respiratory Distress (negative), Comfortable, Fever (negative) and Chills (negative)
Assessment
-
Assessment: 79-year-old non-smoker with a past medical history of CAD with history of [place] (2012) with no interventions done at the time, large scalp actinic keratosis, ED, dyslipidemia and hypertension who presents after he collapsed at a gym and
found to be in cardiac arrest. Patient was at [employer] and was using the elliptical when he fell backwards, hit his head and then became unresponsive. Staff nearby recognized he was unresponsive, placed the AED on him which recommended the
shock, which was delivered. After the shock, patient had a pulse and blood pressure and became alert but was minimally responsive and combative en route to the hospital. He was intubated in the ER, and noted to be tachycardic to 120, BP initially
143/75 and was saturating 97%. Initial temperature via rectal thermometer was 96.6 �F. Initial labs showed leukocytosis to 24.4, Hb 13.7, absolute eosinophils 500, pH 7.32 on blood gas, serum sodium 148, serum bicarbonate 14, creatinine 1.4, and
troponin initially 0.039. Initial CT head showed no acute intracranial abnormality, and CT cervical spine also showed no acute fracture. CXR showed no pneumothorax with suspected increased pulmonary vascularity. CT chest also obtained showing
posterior/basilar subpleural opacification with significant bronchial wall thickening and an infiltrate in the left base, with left posterior eighth rib fracture suspected to be remote. Cardiology was consulted given his initial shockable rhythm,
and given that he had apparent neurological recovery prior to intubation in the ER, he was brought to the Change Room Attendant where there were tandem 75-80% and 50% proximal LAD lesions and he had a ISMAEL x 1 placed. After the cath, he was brought to the ICU
for further care. [facility] services consulted for additional management/recommendations.
Chronic conditions ART DIRECTOR: CAD with history of [place] (2011), GERD, large scalp actinic keratosis, ED, dyslipidemia, hypertension, history of polio as a child, hearing loss, solitary kidney (congenital)
Impression:
#Jgq-qi-jsofalyq cardiac arrest s/p shock delivered by AICD with ROSC obtained
#Acute respiratory failure with hypoxia now on mechanical ventilation
#NSTEMI due to LAD lesion s/p ISMAEL x1 (01/25/2025)
#Multifocal pneumonia, likely aspiration from cardiac arrest
#Leukocytosis
#Acute anemia
#ABISAI
#Transaminitis likely due to hypoperfusion due to cardiac arrest
#Elevated troponin likely due to CPR which shock delivered as well as NSTEMI (at this point on 01/26, it is likely continuing to rise due to [facility] yesterday)
#GERD
#History of hypertension
#History of dyslipidemia
#History of solitary kidney (congenital)
Plan:
- Patient is currently off sedation, awakening and tolerating pressure support trial
- Will obtain ABG and plan to extubate
- Maintain SpO2 >90-94% by titrating FiO2 + PEEP in the interim period, and keep plateau pressure <30
- Frequent oral + endotracheal suctioning as needed
- Aspiration precautions
- As long as patient fulfills Nexus criteria, then we can safely remove c-collar. Contacted orthopedic surgery but they do not evaluate patients with possible spinal injuries. No cervical spine Fx seen on CT-C spine from 01/25/2025
- General Surgery also consulted as he has a cut on the back of his head which was slowly oozing blood this morning; unfortunately, need to continue with dual antiplatelets given fresh stent
- Scalp may need to be stapled if it continues to bleed; recommend holding pressure for now via dressing and tape
- Given that patient had a ISMAEL placed to the LAD, continue with dual antiplatelet therapy with ASA + Brilinta, and also continue high intensity statin
- Plan for ICD prior to discharge for secondary prevention --> defer to EP for timing
- Check echo as last performed in 2020
- Continue to trend troponin until it peaks
- I have concerns for aspiration via his CT chest imaging, and Unasyn was started overnight on 01/26/2025
- Would plan for 7 days total of antibiotics
- Check a sputum culture if he can produce a decent sample; check urine antigens for Legionella + strep pneumonia
- Trend WBC and monitor for fevers
- If he does spike a fever then check UA with reflex to culture, blood culture + CXR, and treat fevers with Tylenol (limit tylenol given his transaminitis)
- Maintain MAP>65 but with BP<140/90
- Renally dose all medications/antibiotics
- Trend sCr and strict I/O
- Trend LFTs
- Replete electrolytes with K>4, Mg>2
- Maintain euglycemia with goal BG 140-180; HbA1C: 6.4 on 01/25/2025
- Trend H/H and transfuse if needed to keep Hb>8g/dL; keep plt>50k (given his mild cut on back of scalp)
- prn nebulized bronchodilators - not currently bronchospastic
- Once extubated, then we can encourage incentive spirometer use, in addition to PT/OT; also once extubated, nursing can check swallow capabilities, and if any issues we will consult [facility]
- DVT ppx: HSQ
Critical care statement: A total of 41 minutes of critical care time was provided for this patient today. This includes management of unstable vital signs, evaluation of the patient at bedside, reviewing the patient's pertinent medical records
including radiographs, microbiology, laboratory evaluations, and discussion with primary team, consultants, pharmacy, nutrition, physical therapy, case management, charge nurse, critical care nursing, and respiratory therapy.
[2025-01-26] MEDS: HEPARIN 5000 UNITS SC ×3 (08:25→23:09)
[2025-01-26] MEDS: LOW STRENGTH ASPIRIN 81 MG TUBE (08:25)
[2025-01-26] MEDS: BRILINTA 90 MG PO ×2 (08:25→20:31)
--- NOTE | 2025-01-26 09:17 | W.PN.CD ---
Today's Communication / Plan
-
EP consult dictated
Dual chamber ICD implant prior to hospital discharge
Med Rx for his CAD, new LAD stent, lipids, HTN
Update echo electively prior to discharge
Impression / Plan
-
Background: 79M with CAD ([place] 2011), Mild LV dysfunction (old LVEF 45-50%), HTN, HLD, GERD, & congenital single kidney presented with cardiac arrest.
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 Brannon
Primary VF arrest; Out of hospital cardiac arrest from VT/VF (no strips from AED)
- Given the lack of STEMI on EKG, lack of significant troponin, and lack of STEMI looking coronary anatomy this is a primary VF arrest
- Secondary prevention ICD is indicated (dual chamber as he will need atrial pacing support, bradys limited BB in past)
- I would not give Amio unless we see a lot of NSVT or sustained VT
- Pt and family aware that by state law he cannot drive for 6 months
Remote [place]
CAD
- Old [place]
- LAD stent 01/25/2025
Mild LV dysfunction, will be updating an echo
Mixed hyperlipidemia, goal LDL now less than 55
Hypertension
Congenital single kidney (right)
Prediabetes, HgbA1c 6.6%
Dyslipidemia, continue statin
Subjective:
Still intubated
Physical Exam
Vital Signs/Labs
Vital Signs
Temp Pulse Resp BP Pulse Ox
100.1 F 70 9 122/61 100
01/26/25 07:00 01/26/25 05:30 01/26/25 05:30 01/26/25 05:30 01/26/25 07:20
01/25/25 01/26/25 01/27/25
06:59 06:59 06:59
Actual Weight 68.2 kg
01/26/25 03:23
01/26/25 03:23
PT 15.5 Sec (11.4-14.6) H 01/25/25 21:33
INR 1.20 01/25/25 21:33
APTT > 200 Sec (23.4-35.0) H* 01/25/25 21:33
Magnesium 1.7 mg/dl (1.6-2.3) 01/26/25 03:23
Triglycerides 144 mg/dl (10-149) 01/26/25 03:23
LDL Cholesterol, Calc 30 mg/dl 01/26/25 03:23
VLDL Cholesterol, Calc 28 mg/dl (0-30) 01/26/25 03:23
HDL Cholesterol 40 mg/dl 01/26/25 03:23
LAB Results
01/25/25 01/25/25 01/26/25
16:22 20:04 03:23
Troponin I 0.039 H* 0.128 H* D 0.456 H* D
Physical Exam
Constitutional: No acute distress
EENT: Anicteric
Cardiovascular: Rhythm & rate is regular and Pedal edema is absent
Respiratory: Respiratory effort normal and Lungs clear to auscul.
GI: Soft and Distention absent
Neuro/Psych: Alert
Data Reviewed
-
Date of Service: January 26, 2025
[2025-01-26 09:41] LABS: Troponin I 0.648 ng/ml
[2025-01-26 10:35] LABS: Glycohemoglobin (HgbA1c) 6.4 % (4.0-5.6)
[2025-01-26 11:19] LABS: B.E. 4.6 mmol/L; HCO3 28.3 mmol/L (21-28); O2 Saturation % 99.3 % (94-98); PCO2 38 mmHg (35-48); PO2 152 mmHg (83-108); pH 7.48 (7.35-7.45)
--- NOTE | 2025-01-26 12:11 | RESPNOTE ---
1200 pt extubated to 4L N/C as per dr. Ortega
[2025-01-26 12:16] LABS: Glucose - Point of Care 168 mg/dl (70-99)
--- NOTE | 2025-01-26 12:25 | W.PN.UPDATE ---
Update Note
Progress Note Update
Patient was successfully extubated -he is breathing comfortably on 4 L/min, and saturating 98%. 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 H test normal, able to shoulder shrug against
resistance. Denies any back pain, shoulder pain, neck pain, or shortness of breath. Per documentation and prior imaging, CT cervical spine from yesterday shows no cervical spine fracture. Patient fits NEXUS criteria to have his cervical collar
removed. C-collar removed at bedside without incident.
--- NOTE | 2025-01-26 12:29 | PTCARENOTE ---
All sedation off at 0900. Pt following commands. SBT started at 0913. Extubated at 1215.
Pt AAOx3. Sinus rhythm with PACs. Lungs CTA. SpO2 99% on 4L NC. Productive cough. NGT came out when extubated. Dressing changed to left dai abrasions. 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 Posterior head with small amount of bleeding. All other
assessments unchanged. Family at bedside.
--- NOTE | 2025-01-26 13:20 | CON.GS ---
Addendum entered and electronically signed by AUSTIN Villa 02/04/25 10:54:
Consult was done on 01/26/25 at approximately 1300
Addendum entered and electronically signed by Jez Bya MD 01/26/25 14:57:
I saw and examined the patient.
The Inspector Hot [employer]gings's note was reviewed and I agree with the note.
Comment: Wound valuated at bedside, hemostatic. Some matted hair. Would monitor for 24 hrs and if no rebleeding can carefully was the area with sterile water. Pls call if rebleeds.
Original Note:
Medical History
-
Chief Complaint: scalp laceration
History of Present Illness:
Mr Anne is a 79 yo male with a h/o CAD s/p stent in 2009 who presents with cardiac arrest. He collapsed at the gym while exercising on a treadmill and was shocked with an AED at [employer]. He is now s/p left heart cath with PCI of the LAD and
was initiated on DAPT. He did sustain a scalp laceration to the left occiput which has been bleeding intermittently since presentation. On exam, there is a small hematoma present on the scalp with a superficial laceration/skin tear visible, not
actively bleeding. The base of the wound is not entirely visible d/t blot presence. Currently intubated in the ICU but able to nod yes and no to simple questions, family present.
Past Medical History
Past Medical History: CAD, HTN, Hypercholesterolemia, NC and Other (polio as a child)
Past Surgical History: Cardiac (stents)
Social History
Tobacco: Non-Smoker
Alcohol: Occasional
Personal:
Living: With Family
Family History
Family History: CAD
Allergies / Home Medications
Allergy/AdvReac Type Severity Reaction Status Date / Time
Sulfa (Sulfonamide Allergy Unknown Verified 01/25/25 16:09
Antibiotics)
�Medication �Instructions �Recorded �Confirmed �Type
aspirin 81 mg tablet,delayed 81 mg PO DAILY 01/06/18 01/19/18 History
release
losartan 25 mg tablet 25 mg PO DAILY 30 days #30 tabs 01/20/18 01/25/25 Rx
atorvastatin 80 mg tablet 80 mg PO QPM 01/25/25 01/25/25 History
ezetimibe 10 mg tablet 10 mg PO DAILY 01/25/25 01/25/25 History
Review of Systems
-
Unable to obtain full review of systems at this time due to: Patient Intubation
History Source: Family, Ambulance Crew and Coordinating Provider
A 10 point review of systems was completed, and was negative except as per HPI.
Physical Exam
Vital Signs
Temp Pulse Resp BP Pulse Ox
100.4 F H 92 16 180/87 100
01/26/25 11:09 01/26/25 09:30 01/26/25 09:30 01/26/25 09:30 01/26/25 11:16
01/25/25 01/26/25 01/27/25
06:59 06:59 06:59
Actual Weight 68.2 kg
Body Mass Index (BMI) 22.9
Lab Results
01/26/25 03:23
01/26/25 03:23
WBC 14.5 10^3/uL (4.8-10.8) H 01/26/25 03:23
Hgb 12.6 g/dL (13.0-18.0) L 01/26/25 03:23
Hct 38.1 % (39.0-52.0) L 01/26/25 03:23
Plt Count 194 10^3/uL (130-400) 01/26/25 03:23
Abs Immat Gran (auto) 0.8 10^3/uL (0-0.05) H 01/25/25 16:22
Neutrophils % 62.8 % (42.2-75.2) 01/25/25 16:22
Physical Exam
General: Well Developed and Well Nourished
HEENT: Other (C-collar in place. Laceration/skin tear to left occipital region with hematoma underlying skin. Appears superficial.)
Respiratory: Other (VDRF)
Neuro: Awake
Assessment / Plan
-
79 yo male who collapsed at the gym sustaining a scalp laceration now s/p cardiac stent placement and on DAPT. Surgery consulted to evaluate for possible need for suturing and ongoing bleeding at site. Currently wound has stopped bleeding. The
visualized portion of the wound with superficial laceration noted/skin tear.
--No plans for suturing/surgical intervention at this time as wound not actively bleeding
--Apply Surgicel dressing to site if oozing noted. Cover with clean dressing with care not to disrupt site.
--Please call if active bleeding continues and surgery team will reassess
--- NOTE | 2025-01-26 15:35 | PTOTSP ---
Speech therapy
Presentation: Patient was oriented, alert and followed commands. Patient's speech and language appeared to be WNL during conversation. Patient denied any communicative complaints.
Swallowing Function: Patient was observed with his meal (regular consistency solids, chicken noodle soup, and thin liquids) in which patient appeared to tolerate as he did not exhibit any overt clinical s/sx of aspiration or difficulty with
mastication/ manipulation. Patient denied dysphagia complaints.
Of note, patient demonstrated a dry delayed cough in the absence of PO.
Recommendations:
1) reg/ thin
2) medications as tolerated
3) aspiration precautions
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
--- NOTE | 2025-01-26 16:16 | PTCARENOTE ---
Pt OOB in chair. SpO2 98% on 2L NC. Good appetite. Decreased urine output. Voiding in small amounts (about 25ml at a time). Bladder scan 600. Assisted pt to stand to void. UO 250. PVR 330.
All other assessments unchanged.
[2025-01-26 17:36] LABS: Glucose - Point of Care 179 mg/dl (70-99)
[2025-01-26] MEDS: LIPITOR 40 MG TUBE (18:39)
--- NOTE | 2025-01-26 20:00 | PTCARENOTE ---
rec`d pt at 1900. AAOx3, assessment as documented. SR to ST on monitor. PVCs. diminished to coarse lung sounds. Strong productive cough. Sputum cultx sent. RA. eating 100% dinner. stands to urinate in urinal w/ 1x assist. PIVS flushed and patent.
call unger in reach, safe environment maintained. Family at bedside.
[2025-01-26] MEDS: TYLENOL 650 MG PO (20:43)
[2025-01-26] MEDS: MORPHINE SULFATE 1 MG IV (23:09)
[2025-01-27] VITALS (20 sets, daily range): BP systolic 115–176; BP diastolic 57–93; PULSE 101–104; O2SAT 93; BMI 23.1
[2025-01-27] MEDS: MORPHINE SULFATE 2 MG IV (02:31)
[2025-01-27] MEDS: UNASYN IV ×4 (02:32→20:48)
--- NOTE | 2025-01-27 02:37 | PTCARENOTE ---
Pt has sternal discomfort. STAT morphine ordered and given. Pt continues to have a productive cough.
[2025-01-27] MEDS: DILAUDID 0.5 MG IV (04:51)
[2025-01-27 05:01] LABS: Hematocrit 32.6 % (39.0-52.0); Hemoglobin 10.7 g/dL (13.0-18.0); Mean Corp Hgb Conc. 32.8 g/dL (33.0-37.0); Mean Corpuscular Hgb 29.2 pg (27.0-31.0); Mean Corpuscular Volume 89.1 fL (80.0-94.0); Platelet Count 145 10^3/uL (130-400); Red Blood Cell Count 3.66 10^6/uL (4.70-6.10); Red Cell Dist. Width 15.6 % (11.5-14.5); White Blood Cell Count 13.5 10^3/uL (4.8-10.8)
[2025-01-27 05:26] LABS: ALT (SGPT) 209 U/L (0-50); AST (SGOT) 86 U/L (17-59); Albumin 3.6 g/dl (3.5-5.0); Alkaline Phosphatase 43 U/L (38-126); Blood Urea Nitrogen 22 mg/dl (9-20); Carbon Dioxide 30 mmol/L (22-30); Chloride 104 mmol/L (98-107); Estimated Creatinine Clearance 50 ml/min; Glucose 118 mg/dl (70-99); Potassium 3.9 mmol/L (3.5-5.1); Sodium 142 mmol/L (135-145); Total Bilirubin 1.4 mg/dl (0.2-1.3); Total Protein 5.8 g/dl (6.3-8.2); eGFR > 60.00
--- NOTE | 2025-01-27 07:58 | W.PN.INTV ---
Today's Communication / Plan
Recommendations
Plan for ICD tomorrow for secondary prevention; keep NPO p MN
DAPT with Brilinta + ASA
High intensity statin, although trend LFTs
Antibiotics; diaz-culture today given occasional light fevers since 01/26/2025
Patient is stable for downgrade out of ICU to IVU. No additional recommendations at this time. Asp Net C Developer/Pulmonary service will now sign off. Please reconsult if there are any additional questions/concerns, or if patient's respiratory status
deteriorates.
Assessment
-
Assessment: 79-year-old non-smoker with a past medical history of CAD with history of [place] (2011) with no interventions done at the time, large scalp actinic keratosis, ED, dyslipidemia and hypertension who presents after he collapsed at a gym and
found to be in cardiac arrest. Patient was at [employer] and was using the elliptical when he fell backwards, hit his head and then became unresponsive. Staff nearby recognized he was unresponsive, placed the AED on him which recommended the
shock, which was delivered. After the shock, patient had a pulse and blood pressure and became alert but was minimally responsive and combative en route to the hospital. He was intubated in the ER, and noted to be tachycardic to 120, BP initially
143/75 and was saturating 97%. Initial temperature via rectal thermometer was 96.6 �F. Initial labs showed leukocytosis to 24.4, Hb 13.7, absolute eosinophils 500, pH 7.32 on blood gas, serum sodium 148, serum bicarbonate 14, creatinine 1.4, and
troponin initially 0.039. Initial CT head showed no acute intracranial abnormality, and CT cervical spine also showed no acute fracture. CXR showed no pneumothorax with suspected increased pulmonary vascularity. CT chest also obtained showing
posterior/basilar subpleural opacification with significant bronchial wall thickening and an infiltrate in the left base, with left posterior eighth rib fracture suspected to be remote. Cardiology was consulted given his initial shockable rhythm,
and given that he had apparent neurological recovery prior to intubation in the ER, he was brought to the Calculus Professor where there were tandem 75-80% and 50% proximal LAD lesions and he had a ISMAEL x 1 placed. After the cath, he was brought to the ICU
for further care. [employer] Net C Developer services consulted for additional management/recommendations.
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
Impression:
#Saw-ed-kufldpng cardiac arrest s/p shock delivered by AICD with ROSC obtained
#Acute respiratory failure with hypoxia requiring mechanical ventilation on 01/25/2025--> extubated 01/26/2025
#NSTEMI due to LAD lesion s/p ISMAEL x1 (01/25/2025)
#Multifocal pneumonia, likely aspiration from cardiac arrest
#Leukocytosis
#Acute anemia
#ABISAI
#Transaminitis likely due to hypoperfusion due to cardiac arrest
#Elevated troponin likely due to CPR which shock delivered as well as NSTEMI (as of 01/26, elevated trop likely continuing to rise due to C on 01/25)
#GERD
#History of hypertension
#History of dyslipidemia
#History of solitary kidney (congenital)
Plan:
- Patient was successfully extubated yesterday (02/22) and is now on room air breathing comfortably, saturating 92-93%
- Encourage incentive spirometer
- Up OOB as tolerated
- Maintain SpO2 >90-94%
- Aspiration precautions
- C-collar was removed on 01/26 as the pt fulfilled Nexus criteria - of note, Dr. Ramos contacted orthopedic surgery but they do not evaluate patients with possible spinal injuries. No cervical spine Fx seen on CT-C spine from 01/25/2025
- General Surgery also consulted as he has a cut on the back of his head which was slowly oozing blood yesterday morning; unfortunately, need to continue with dual antiplatelets given fresh stent
- Scalp may need to be stapled if it continues to bleed; recommend holding pressure for now via dressing and tape; area has coagulated so no need for stapling as of 01/26
- Given that patient had a ISMAEL x1 placed to the LAD, continue with dual antiplatelet therapy with ASA + Brilinta, and also continue high intensity statin
- Plan for ICD prior to discharge for secondary prevention --> defer to EP for timing (plan is for tomorrow)
- Check echo as last performed in 2020
- Troponin peaked at 0.128 on 01/25/2025; no need to continue trending at this time
- I have concerns for aspiration via his CT chest imaging, and Unasyn was started overnight on 01/26/2025
- Would plan for 7 days total of antibiotics
- Follow-up sputum culture; urine antigens for Legionella + strep pneumonia both negative
- Trend WBC and monitor for fevers
- Given that he had a fever yesterday, will check UA with reflex to culture, blood culture and CXR; treat fevers with Tylenol (limit tylenol given his transaminitis)
- Maintain MAP>65 but with BP<140/90
- Renally dose all medications/antibiotics
- Clinically creatinine is stable, 1.2 today
- Trend sCr and strict I/O
- Trend LFTs
- Replete electrolytes with K>4, Mg>2
- Maintain euglycemia with goal BG 140-180; HbA1C: 6.4 on 01/25/2025
- Trend H/H and transfuse if needed to keep Hb>8g/dL; keep plt>50k (given his mild cut on back of scalp)
- prn nebulized bronchodilators - not currently bronchospastic
- Encourage incentive spirometer use
- PT/OT
- DVT ppx: HSQ
Patient is stable for downgrade out of ICU to IVU. No additional recommendations at this time. Asp Net C Developer/Pulmonary service will now sign off. Thank you for allowing us to be involved in the care of this patient. Please reconsult if there are
any additional questions/concerns, or if patient's respiratory status deteriorates.
Total time spent today was 58 minutes for this encounter. Time includes reviewing laboratory test/imaging results, reviewing pertinent medical records, obtaining and reviewing medical history, performing an appropriate exam, ordering medications,
tests and procedures. Time also includes documentation of this encounter, coordinating patient care and communicating with other healthcare professionals. Total time does not include separately billed tests performed on this date of service.
Subjective Dataa
Subjective Data
Date of Service:
Date of Service: January 27, 2025
Chief Complaint: Asp Net C Developer Follow Up
Subjective:
Pt seen this AM. Resting in chair in NAD. Has pain at his chest where CPR was done. HR 88, BP 132/79, on RA saturating 93%. Fever yesterday AM to 100.4 �F. Patient's at bedside. He otherwise feels well, just tired. Denies MATHEW, nausea, or
SOB.
Review of Systems
General: Other (Negative unless mentioned above)
Objective Data
Data Reviewed
Vital Signs / I&O / Oxygen:
Vital Signs
Temp Pulse Resp BP Pulse Ox
99.3 F 98 20 171/67 93
01/27/25 07:18 01/27/25 09:00 01/27/25 09:00 01/27/25 09:00 01/27/25 09:00
Intake and Output
01/26/25 01/27/25 01/28/25
06:59 06:59 06:59
Intake Total 1012.6 / 1044.2 808.2 / 808.2 240 / 240
Output Total 575 / 575 1100 / 1100
Balance 437.6 / 469.2 -291.8 / -291.8 240 / 240
SaO2 [A/C] 100
SaO2 93
Physical Exam
General: Respiratory Distress (negative), Comfortable, Chills (negative) and Sweats (negative)
HEENT: Normocephalic and Anicteric
Cardiovascular: S1-S2, Murmur (negative) and Peripheral Edema (negative)
Respiratory: Clear, Wheeze (negative), Crackles (negative), Rhonchi (negative) and Non-Labored Respirations
GI: Soft, Non Distended, Non Tender and Normal Bowel Sounds
Neurology: AO x 3 and Tremors (negative)
Skin: Warm, Dry, Cyanosis (negative) and Jaundice (negative)
Labs/Micro/Reports
Lab Data
01/27/25 04:42
01/27/25 04:42
Laboratory Results
01/26/25
11:10
pH 7.48 H
pCO2 38
pO2 152 H
HCO3 28.3 H
O2 Delivery Level
Microbiology
01/26/25 15:17 Urine Legionella Urinary Antigen - Final
Negative for Legionella pneumophila Serogroup 1 antigen.
A negative result does not rule out the possiblity of
Legionella infection due to other serogroups or species of
Legionella. Clinical correlation is recommended.
01/26/25 15:17 Urine Streptococcus pneumoniae Antigen (M - Final
Negative for Streptococcus pneumoniae antigen.
A negative result does not exclude infection with
Streptococcus pneumoniae. Clinical correlation is
recommended.
[2025-01-27] MEDS: HEPARIN 5000 UNITS SC ×3 (08:08→22:55)
[2025-01-27] MEDS: BRILINTA 90 MG PO ×2 (08:08→20:47)
[2025-01-27] MEDS: LOW STRENGTH ASPIRIN 81 MG TUBE (08:08)
--- NOTE | 2025-01-27 09:46 | W.PN.CD ---
Today's Communication / Plan
-
Echo tomorrow
Dual chamber left sided ICD to be placed tomorrow for secondary prevention of VT/VF arrest
Impression / Plan
-
Background: 79M with CAD ([place] 2011), Mild LV dysfunction (old LVEF 45-50%), HTN, HLD, GERD, & congenital single kidney presented with cardiac arrest.
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
Primary VF arrest; Out of hospital cardiac arrest from VT/VF (no strips from AED)
- Given the lack of STEMI on EKG, lack of significant troponin, and lack of STEMI looking coronary anatomy this is a primary VF arrest
- Secondary prevention ICD is indicated (dual chamber as he will need atrial pacing support, bradys limited BB in past)
- I would not give Amio unless we see a lot of NSVT or sustained VT
- Pt informed that by [place] state law he cannot drive for 6 months
Remote [place]
CAD
- Old [place]
- LAD stent 01/25/2025
Mild LV dysfunction, will be updating an echo
Mixed hyperlipidemia, goal LDL now less than 55
Hypertension
Congenital single kidney (right)
Prediabetes, HgbA1c 6.6%
Dyslipidemia, continue statin
Subjective:
Extubated, alert/oriented, aware of plans for ICD
Physical Exam
Vital Signs/Labs
Vital Signs
Temp Pulse Resp BP Pulse Ox
99.3 F 98 20 171/67 93
01/27/25 07:18 01/27/25 09:00 01/27/25 09:00 01/27/25 09:00 01/27/25 09:00
01/26/25 01/27/25 01/28/25
06:59 06:59 06:59
Actual Weight 68.2 kg 68.9 kg
01/27/25 04:42
01/27/25 04:42
PT 15.5 Sec (11.4-14.6) H 01/25/25 21:33
INR 1.20 01/25/25 21:33
APTT > 200 Sec (23.4-35.0) H* 01/25/25 21:33
Magnesium 2.0 mg/dl (1.6-2.3) 01/27/25 04:42
Triglycerides 144 mg/dl (10-149) 01/26/25 03:23
LDL Cholesterol, Calc 30 mg/dl 01/26/25 03:23
VLDL Cholesterol, Calc 28 mg/dl (0-30) 01/26/25 03:23
HDL Cholesterol 40 mg/dl 01/26/25 03:23
LAB Results
01/25/25 01/25/25 01/26/25
16:22 20:04 03:23
Troponin I 0.039 H* 0.128 H* D 0.456 H* D
01/26/25 01/26/25 01/26/25
08:49 15:17 19:30
Troponin I 0.648 H* D 0.470 H* D Cancelled
Physical Exam
Constitutional: No acute distress
EENT: Anicteric
Cardiovascular: Rhythm & rate is regular and Pedal edema is absent
Respiratory: Respiratory effort normal and Lungs clear to auscul.
GI: Soft and Distention absent
Neuro/Psych: AO x 3
Data Reviewed
-
Date of Service: January 27, 2025
[2025-01-27] MEDS: LIDOCAINE 4% PATCH 1 PATCH TOPICAL (12:47)
--- NOTE | 2025-01-27 14:10 | PTCARENOTE ---
Pt AAOx3. OOB in chair since 11am. Sinus Arrhythmia. Frequent cough. Chest pain with cough. Lidocaine patch applied. Temp 100.6 orally. Blood cultures sent. Pt notified of need for urine specimen.
--- NOTE | 2025-01-27 14:19 | W.PN.HOSP.TC ---
Today's Communication/Plan
-
AICD tomorrow
Assessment / Plan
Assessment / Plan
Impression:
Patient is 79 years old with history of hypertension, ischemic cardiomyopathy, hyperlipidemia, coronary artery disease who came to the hospital as rhh-oq-eqhuirve cardiac arrest, patient was at [employer] when he collapsed to the ground, AED was
applied and 1 shock was delivered, patient came to the ER and straight to cardiac cath where he had a stent to proximal LAD.
Patient currently intubated and sedated in the ICU
01/27
Patient extubated on 01/26, doing good after extubation.
Plan for AICD possible tuesday.
Assessment/plan:
Cmx-wb-ifxqphec cardiac arrest concern of V-fib arrest
-EKG shows sinus tachycardia with premature supraventricular complexes, subtle ST depressions in V5 V6
- Troponin of 0.039
- Cardiology consulted status post urgent cardiac cath and proximal LAD stent
- CT chest shows marked bilateral dependent subsegmental atelectasis, left posterior eighth rib fracture, cannot exclude mild pulmonary edematous changes
- CT head, cervical spine unremarkable
Currently intubated and sedated in the ICU
Seen by cardiology who recommended AICD for concern of V-fib arrest
01/27
Plan for AICD placement.
Coronary artery disease status post cardiac cath and stent.
Patient underwent emergent cardiac cath with successful PCI of the tandem 75 to 80% and 50% of proximal LAD lesions
Aspirin, atorvastatin, Brilinta
Severe sepsis with acute organ
Possible secondary to aspiration
Patient meets sepsis criteria on admission with tachycardia, leukocytosis.
Organ dysfunction in form of acute hypoxic respiratory failure/ABISAI.
Started on Unasyn for concern of aspiration.
Continue for 7 days --> eventually can be switched to Augmentin
Acute hypoxic respiratory failure secondary to cardiac arrest.
S/p intubation, currently extubated
ABISAI secondary to cardiac arrest
Creatinine improved
Non-anion gap metabolic acidosis
Gap closed
Hypernatremia
Improved
Transaminitis likely secondary to shock liver from cardiac arrest
Improving
Hyperlipidemia
Continue statin
CODE STATUS: Full code
DVT prophylaxis: Heparin
Diet: Cardiac, NPO after midnight
Family communication: Discussed with family at bedside
Disposition: AICD tomorrow
Total time spent on today's encounter was 75 minutes which included time spent in counseling the patient/family regarding diagnosis and treatment plan as listed above, goals of care, and symptom management. Case was discussed with nursing staff,
specialists, and care coordinators/case management. All labs and imaging personally reviewed by me. Remainder the time spent in detailed review of previous records, lab data, imaging, and other medical provider documentation.
Anticipated Discharge: 24 - 48 hours
Subjective/Interval History
-
Date of Service: January 27, 2025
Patient seen and examined at bedside, extubated yesterday, coughing, chest pain at CPR side, no abdominal pain, no nausea, no vomiting, no diarrhea or constipation.
Objective Data
-
Labs:
Laboratory Results
01/27/25
04:42
WBC 13.5 H
Hgb 10.7 L
Hct 32.6 L
Plt Count 145 D
Sodium 142
Potassium 3.9
Chloride 104
Carbon Dioxide 30
BUN 22 H
Creatinine 1.2
Glucose 118 H
Calcium 8.0 L
Total Bilirubin 1.4 H
AST 86 H
ALT 209 H
Alkaline Phosphatase 43
Vital Signs:
Vital Signs
Temp Pulse Resp BP Pulse Ox
100.6 F H 91 20 146/93 92
01/27/25 11:46 01/27/25 11:00 01/27/25 11:00 01/27/25 11:00 01/27/25 10:30
I&O
01/26/25 01/27/25 01/28/25
06:59 06:59 06:59
Intake Total 1012.6 / 1044.2 808.2 / 808.2 480 / 480
Output Total 575 / 575 1100 / 1100 450 / 450
Balance 437.6 / 469.2 -291.8 / -291.8
Physical Exam
-
General: Well Developed, Well Nourished, No Apparent Distress and Comfortable
HEENT: Normocephalic, Atraumatic, Moist Mucous Membranes, No Ptosis, PERRLA and Nose Appears Normal
Respiratory: Rales, Rhonchi and Crackles
Cardiac: Regular Rhythm, S1/S2 and Other (Chest wall tenderness)
Breast: Deferred by me
GI: Soft, Nontender, Nondistended and Normal Bowel Sounds
Genito-urinary: No Costovertebral Tender
Musculoskeletal: No Clubbing, No Cyanosis and No Edema
Skin: Warm
Neuro: Awake, Alert, Oriented, AO x 3 and No Motor Deficits
Psych: Calm
Data Reviewed
-
Diagnostic Radiology: Image personally visualized and interpreted and Report Reviewed by me
CT Scan: Image personally visualized and interpreted and Report Reviewed by me
Ultrasound: Image personally visualized and interpreted and Report Reviewed by me
MRI: Image personally visualized and interpreted and Report Reviewed by me
Medical Tests (Nuc Med, Echo etc): Image personally visualized and interpreted and Report Reviewed by me
Labs: Labs Reviewed by me
Old Records: Reviewed
[2025-01-27] MEDS: LIPITOR 40 MG TUBE (17:12)
--- NOTE | 2025-01-27 17:31 | PTCARENOTE ---
01/27/25 1600 received patient from ICU via wheelchair. Pt walked to chair without any injury. Pt on room air @ 93%. Pt placed on panel monitor in NSR. BP stable. Pt with no complaints of chest pain, shortness of breath, or palpitations. Oriented pt
to room and surroundings. Answered any questions. Support given.
[2025-01-27 18:40] LABS: Urine Albumin 3+ (Neg - Trace); Urine Bilirubin Negative (Negative); Urine Character Clear (Clear); Urine Color Yellow; Urine Glucose Negative (Negative); Urine Ketone Negative (Negative); Urine Leukocyte 1+ (Negative); Urine Nitrite Negative (Negative); Urine Occult Blood 3+ (Negative); Urine Urobilinogen 2+ (Neg - 1+)
[2025-01-27] MEDS: TYLENOL 650 MG PO (18:56)
[2025-01-27 19:30] LABS: Urine Bacteria Few (Negative)
[2025-01-28] VITALS (13 sets, daily range): BP systolic 38–157; BP diastolic 26–95; BMI 27.2
--- NOTE | 2025-01-28 00:02 | PTCARENOTE ---
Pt rec'd at beginning of shift in bed awake,alert. Pain upper chest/ sternum with movement or cough. Pt utilizing cough pillow for support. occ clear sputum via [place]. chest prepped for ICD placement. clipped and CHG bath given. Pt aware of npo
status after mn. Scab on back of head dry, no active bleeding. call unger within reach.
[2025-01-28] MEDS: UNASYN IV ×4 (02:27→22:10)
[2025-01-28] MEDS: TYLENOL 650 MG PO ×3 (02:41→21:41)
[2025-01-28 03:18] LABS: Hematocrit 32.2 % (39.0-52.0); Hemoglobin 10.8 g/dL (13.0-18.0); Mean Corp Hgb Conc. 33.5 g/dL (33.0-37.0); Mean Corpuscular Hgb 29.8 pg (27.0-31.0); Mean Corpuscular Volume 88.7 fL (80.0-94.0); Mean Platelet Volume 11.4 fL (7.4-10.4); Platelet Count 153 10^3/uL (130-400); Red Blood Cell Count 3.63 10^6/uL (4.70-6.10); Red Cell Dist. Width 15.3 % (11.5-14.5); White Blood Cell Count 15.8 10^3/uL (4.8-10.8)
[2025-01-28 03:47] LABS: ALT (SGPT) 144 U/L (0-50); AST (SGOT) 49 U/L (17-59); Albumin 3.4 g/dl (3.5-5.0); Alkaline Phosphatase 55 U/L (38-126); Blood Urea Nitrogen 19 mg/dl (9-20); Calcium 8.4 mg/dl (8.4-10.2); Carbon Dioxide 25 mmol/L (22-30); Chloride 107 mmol/L (98-107); Estimated Creatinine Clearance 54 ml/min; Glucose 132 mg/dl (70-99); Magnesium 1.9 mg/dl (1.6-2.3); Phosphorus 2.8 mg/dl (2.5-4.5); Potassium 3.9 mmol/L (3.5-5.1); Sodium 142 mmol/L (135-145); Total Bilirubin 1.4 mg/dl (0.2-1.3); Total Protein 5.8 g/dl (6.3-8.2); eGFR > 60.00
[2025-01-28 07:42] LABS: ACT-LR - POC > 397 Seconds (116-155)
--- NOTE | 2025-01-28 08:10 | PTCARENOTE ---
Assumed care of pt from prev nsg shift; Pt AAOx3 w/c/o 'mild, 3/10 L upper chest discomfort' r/t recent CPR. PRN Tylenol administered as ordered. Pt w/VSS w/HR in the 80's-90's, BP 144/68 this AM. Pt is SR w/freq PVC's on telemetry monitoring. Pt
OOB to chair, prepped for AICD placement today by prev nsg shift. 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 Plan of care ongoing. Pt w/call unger within reach & no addtl needs at this time.
[2025-01-28] MEDS: LOW STRENGTH ASPIRIN 81 MG TUBE (09:13)
[2025-01-28] MEDS: LIDOCAINE 4% PATCH 1 PATCH TOPICAL (09:16)
[2025-01-28] MEDS: BRILINTA 90 MG PO (09:16)
[2025-01-28] MEDS: FLUSH (NSS) 2 FLUSH IV (09:16)
[2025-01-28] MEDS: HEPARIN SC (10:10)
--- NOTE | 2025-01-28 10:11 | WOUNDNOTE ---
[facility] RN note: Patient admitted with cardiac arrest.
See H&P for complete history. Lives with at home.
PMH:Patient is 79 years old with history of hypertension, ischemic cardiomyopathy, hyperlipidemia, coronary artery disease who came to the hospital as uqs-si-ivxnlgfu cardiac arrest, patient was at [employer] when he collapsed to the ground, AED
was applied and 1 shock was delivered, patient came to the ER and straight to cardiac cath where he had a stent to proximal LAD.
Wound Location and type/assessment: Patient admitted with: Patient and at bedside reported he fell off elliptical at gym, hit back of head where recent biopsy done by applied exercise physiologist, reopened site. Now no active bleeding, blood caked to scalp.
Patient states he has a follow up apt with applied exercise physiologist in a week. Shins with abrasions suspect scraped against machine during fall. R leg not open, scattered red almeida. L dai partial thickness and scant drainage. Heels are intact, patient turns
self.
Appetite: NPO for testing.
Pressure redistribution devices in place: Can be on Accumax, encourage turning. Pillow under calves.
Plan: local wound care done to L dai, scalp open to air. Will confirm orders with hospitalist and update nurse.
Updated care plan and will sign off unless needed.
Note to case management of equipment requested for discharge: None.
Recommend follow up with applied exercise physiologist as scheduled.
--- NOTE | 2025-01-28 10:18 | W.PN.CD ---
Today's Communication / Plan
-
- Plan for dual chamber ICD
Impression / Plan
-
Background: 79M with CAD (NM 2011), Mild LV dysfunction (old LVEF 45-50%), HTN, HLD, GERD, & congenital single kidney presented with cardiac arrest.
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 Brannon
Primary VF arrest; Out of hospital cardiac arrest from VT/VF (no strips from AED)
- Given the lack of STEMI on EKG, lack of significant troponin, and lack of STEMI looking coronary anatomy this is a primary VF arrest
- Secondary prevention ICD is indicated (dual chamber as he will need atrial pacing support, bradys limited BB in past)
- I would not give Amio unless we see a lot of NSVT or sustained VT
- Pt informed that by [place] state law he cannot drive for 6 months
- Dual chamber ICD today
Remote NM
CAD
- Old NM
- LAD stent 01/25/2025 - no culprit lesion.
Mild LV dysfunction, will be updating an echo
Mixed hyperlipidemia, goal LDL now less than 55
Hypertension
Congenital single kidney (right)
Prediabetes, HgbA1c 6.6%
Dyslipidemia, continue statin
Subjective:
alert/oriented, aware of plans for ICD. Agreeable after discussion of risks and benefits.
No active complaints.
Physical Exam
Vital Signs/Labs
Vital Signs
Temp Pulse Resp BP Pulse Ox
99.3 F 94 20 157/67 94
01/28/25 07:47 01/28/25 02:25 01/28/25 07:47 01/28/25 02:25 01/28/25 07:47
01/27/25 01/28/25 01/29/25
06:59 06:59 06:59
Actual Weight 68.6 kg
01/28/25 02:37
01/28/25 02:37
PT 15.5 Sec (11.4-14.6) H 01/25/25 21:33
INR 1.20 01/25/25 21:33
APTT > 200 Sec (23.4-35.0) H* 01/25/25 21:33
Magnesium 1.9 mg/dl (1.6-2.3) 01/28/25 02:37
Triglycerides 144 mg/dl (10-149) 01/26/25 03:23
LDL Cholesterol, Calc 30 mg/dl 01/26/25 03:23
VLDL Cholesterol, Calc 28 mg/dl (0-30) 01/26/25 03:23
HDL Cholesterol 40 mg/dl 01/26/25 03:23
LAB Results
01/25/25 01/25/25 01/26/25
16:22 20:04 03:23
Troponin I 0.039 H* 0.128 H* D 0.456 H* D
01/26/25 01/26/25 01/26/25
08:49 15:17 19:30
Troponin I 0.648 H* D 0.470 H* D Cancelled
Physical Exam
Constitutional: No acute distress and Comfortable
EENT: Anicteric and Moist mucous membranes
Cardiovascular: Pedal edema is absent, Rhythm/rate is irregular and Systolic murmur present
Respiratory: Respiratory effort normal, Wheeze Absent and Crackles Absent
GI: Soft, Distention absent, Non tender and Normal bowel sounds
Neuro/Psych: Alert, Oriented and AO x 3
Other: Cath Site and Cardiac Device Site
Data Reviewed
-
Date of Service: January 28, 2025
Medical Decision Making: Reviewed Test Results, Test Interpretation and Review of Case with other Provider
EKG: Tracing Personally Visualized and interpreted
Echo: Report Reviewed by me
X-Ray/CT/US/MRI/NUC/PET: Image Personally Visualized and interpreted
Medical Tests (PFT, Pathology etc): Report Reviewed by me
Labs: Labs Reviewed by me
Old Records: Reviewed
--- NOTE | 2025-01-28 10:40 | CM ---
Reviewed chart.Met with and Mrs. Anne to review discharge plans. He states prior to admission he resides with his spouse in a three story home with seven steps to enter. He states he has a full flight of steps to get to bedroom/full
bathroom. He states he has a powder room on the first floor. He states prior to admission he was independent with ambulation and adls. He states he montes not have any DME in the home. He states he has a prescription plan and uses [facility]. Will
need to see his current functional level to see if he will have any skilled care needs. Medical work-up in progress. The discharge plan is to return home with his spouse when medically stable.
--- NOTE | 2025-01-28 14:20 | PTCARENOTE ---
Report to Renetta in the EP lab; an addtl set of CHG wipes completed on pt prior to ICD placement. Pt transported in his bed to EP lab for ICD.
--- NOTE | 2025-01-28 15:52 | W.PN.HOSP.TC ---
Today's Communication/Plan
-
AICD today
Assessment / Plan
Assessment / Plan
Impression:
Patient is 79 years old with history of hypertension, ischemic cardiomyopathy, hyperlipidemia, coronary artery disease who came to the hospital as [id number]-hvjfvcbp cardiac arrest, patient was at [employer] when he collapsed to the ground, AED was
applied and 1 shock was delivered, patient came to the ER and straight to cardiac cath where he had a stent to proximal LAD.
Patient currently intubated and sedated in the ICU
01/27
Patient extubated on 01/26, doing good after extubation.
Plan for AICD possible tuesday.
Assessment/plan:
Xob-jk-sojezcfy cardiac arrest concern of V-fib arrest
-EKG shows sinus tachycardia with premature supraventricular complexes, subtle ST depressions in V5 V6
- Troponin of 0.039
- Cardiology consulted status post urgent cardiac cath and proximal LAD stent
- CT chest shows marked bilateral dependent subsegmental atelectasis, left posterior eighth rib fracture, cannot exclude mild pulmonary edematous changes
- CT head, cervical spine unremarkable
Currently intubated and sedated in the ICU
Seen by cardiology who recommended AICD for concern of V-fib arrest
-Secondary prevention - Plan for AICD placement today
Coronary artery disease status post cardiac cath and stent.
Patient underwent emergent cardiac cath with successful PCI of the tandem 75 to 80% and 50% of proximal LAD lesions
Aspirin, atorvastatin, Brilinta
Severe sepsis with acute organ
Possible secondary to aspiration
Patient meets sepsis criteria on admission with tachycardia, leukocytosis.
Organ dysfunction in form of acute hypoxic respiratory failure/ABISAI.
Started on Unasyn for concern of aspiration.
Continue for 7 days --> eventually can be switched to Augmentin
Acute hypoxic respiratory failure secondary to cardiac arrest.
S/p intubation, currently extubated
ABISAI secondary to cardiac arrest
Creatinine improved
Non-anion gap metabolic acidosis
Gap closed
Hypernatremia
Improved
Transaminitis likely secondary to shock liver from cardiac arrest
Improving
Hyperlipidemia
Continue statin
CODE STATUS: Full code
DVT prophylaxis: DCed HSQ for procedure
Diet: Cardiac, NPO after midnight
Family communication: Discussed with family at bedside
Disposition: AICD tomorrow
Total time spent on today's encounter was 75 minutes which included time spent in counseling the patient/family regarding diagnosis and treatment plan as listed above, goals of care, and symptom management. Case was discussed with nursing staff,
specialists, and care coordinators/case management. All labs and imaging personally reviewed by me. Remainder the time spent in detailed review of previous records, lab data, imaging, and other medical provider documentation.
Anticipated Discharge: 24 - 48 hours
Subjective/Interval History
-
Date of Service: January 28, 2025
AICD today
Objective Data
-
Vital Signs:
Vital Signs
Temp Pulse Resp BP Pulse Ox
98.8 F 115 20 134/95 96
01/28/25 11:21 01/28/25 11:30 01/28/25 11:21 01/28/25 11:22 01/28/25 11:21
I&O
01/27/25 01/28/25 01/29/25
06:59 06:59 06:59
Intake Total 808.2 / 808.2 830 / 830
Output Total 1100 / 1100 700 / 700
Balance -291.8 / -291.8 130 / 130
Review of Systems
-
History Source: Patient
All other systems: Not reviewed unless documented
--- NOTE | 2025-01-28 16:10 | ITS.CL.ICD ---
Collection Support Specialist - ICD
Implantable Cardioverter Defibrillator
Procedure Report:
Dual Chamber Implantable Cardioverter Defibrillator Placement:
Mr. Anne is a very pleasant 79 years old gentleman with h/o NM in 2011 with LV scar and CAD, LVEF of 45%, HTN, HLD, GERD and congenital single kidney presented with cardiac arrest with cardiac cath showing LAD 75% disease without any culprit lesion
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
tachycardia and need for pacing for his bradycardia.
Indications: Tachy kayley syndrome with Cardiac arrest.
Date of the Procedure: 01/28/2025
Pre-Operative Diagnosis: Tachy kayley syndrome with Cardiac arrest
Post-Operative Diagnosis: Tachy kayley syndrome with Cardiac arrest
Procedure Performed: DUAL CHAMBER IMPLANTABLE CARDIOVERTER DEFIBRILLATOR IMPLANTATION
Performing Physician:
Nuria Longoria MD
Anesthesia:
See anesthesia records
Detailed Description of the Procedure:
The patient was identified using hospital identification and informed consent obtained for the procedure. The risks were explained including, but not limited to: Bleeding, infection, arrhythmia, stroke, vascular/cardiac/lung puncture, surgery,
pacemaker dependency/device malfunction. All questions were answered.
The patient was brought to the electrophysiology laboratory in stable condition in fasting state. Continuous electrocardiographic and hemodynamic monitoring was initiated. The initial rhythm was atrial fibrillation.
The procedure site was meticulously prepared with surgical scrub and allowed to dry with no pooling. Sterile draping was applied to cover the procedure site. The image intensifier was draped with sterile bag and positioned over the patient.
The left infra-clavicular region was prepped and draped in the usual sterile fashion. Local anesthesia was administered subcutaneously using 1% lidocaine / Bupivacaine. The left cephalic vein cut-down was performed with an incision at the
delto-pectoral groove. There was no good vein noted for access and decision was made to proceed with axillary vein puncture. Using micro-puncture apparatus, the axillary vein was cannulated, and vascular sheaths were introduced for lead access.
These were advanced into the right ventricle and the right atrium.
The right ventricular lead was secured in position with an active fixation technique at the apical septal location.
The RA lead was attached in the right atrial appendage with passive fixation using tines.
There was excellent sensing, pacing, and impedance from the leads, with no diaphragmatic stimulation at 10 V output.�Bovie cautery, antibiotics, and fluoroscopy were used.
The sheath was withdrawn, and the thresholds remained acceptable. The lead was secured in position at the venous entry site with 2-0 Ethibond.
A purse-string suture was placed using 2-0 Vicryl and 2-0 VLOC sutures. A pocket was fashioned contiguous to the incision. The electrode terminals were connected to the pulse generator, which was placed into the pocket. The wound was irrigated
thoroughly with antibiotic solution and closed in 3 layers using 2-0 VLoc sutures followed by 2 layers of 4-0 monocryl sutures. Steri-Strips and a bandage were applied externally.�
Procedure End:
The procedure was tolerated well. A bandage was applied to the incision area.
Estimated Blood loss:
5 cc
Specimens Removed:
No cultures and no specimens were obtained. No intraoperative pathology was identified.
Urine output:
None
Packs / Drains/ Tubes:
None
Instrument / Sponge Count Correct:
Yes
Complications of the Procedure:
None
Condition of Patient at Time of Transfer:
Hemodynamically stable with no neurological or vascular compromise.
Device information:�
Generator: XO1; Model: [id number]; Serial # [id number]
Atrial Lead: Medtronic; Model: 4574-45; Serial # [id number]�
Measured data in the right atrium was sensing of 0.8 mV of AF waves, impedance of 494 ohms.
RV Lead: Medtronic; Model: 6935M-55; Serial # [id number]
Measured data in the RV lead was sensing of 10mV, impedance of 684ohms and threshold of 1.0 V at 0.4ms�
PROGRAMMING PARAMETERS:�
Kayley parameter settings were AAIR <=>DDDR 60-130 bpm. �
����������� Mode switch: On
����������� Paced AV delay: 130 ms
����������� Sensed AV delay: 100 ms
����������� Rate Adaptive A-V Interval: Off
Output parameters:
����������������������� Amplitude (V)������������� Pulse Width (ms)������� Sensitivity (mV)
����������� RA: ����� 3.5 ����������������� 0.4������������������ 0.3
����������� RV:������ 3.5������������������ 0.4������������������ 0.3
Tachy parameter settings:
����������� SVT discrimination:
����������� Wavelet: On
����������� AF/AFl: Off
����������� SVT limit: 260 msec
����������� RV lead noise:on
����������� VT zone:
����������������������� Slow VT: �������� 150-167 bpm -->Monitor
����������������������� VT: ����������������� 167 - 188 bpm --> 7 bursts then� shocks
����������������������� Fast VT / VF: �� >188 bpm --> Shock x6 (ATP before and during)
�����������
Summary:
Successful implantation of MRI compatible dual chamber Medtronic implantable Cardioverter Defibrillator.�
Results/Recommendations:
-Please follow up CXR�
1. Please provide patient with adequate pain control�
Instructions to be given to patient:�
- Please follow up with [facility] at [address] [place] [address] ([phone]) to get your wound checked within 14 days of your discharge.
- Do not soak incision site until after it is evaluated at cardiology clinic. OK to showers followed by dab dry the area. No baths or swimming until then. Sponge baths are OK.�
- Allow 'steri strips' to fall off on their own�
- Do not lift left elbow above shoulder, particularly with sudden jerking movements, for 1 month�
- Do not lift anything weighing more than 5 pounds with the left arm for 1 month�
- If you notice any fevers, shortness of breath, lightheadedness, chest pain, or worsening swelling in the wound site, please contact the arrhythmia clinic, contact your sustainable products marketing manager, or present to the hospital for evaluation.�
Irfan Von, MD
Electrophysiology
--- NOTE | 2025-01-28 16:13 | W.PN.UPDATE ---
Update Note
Progress Note Update
Newly identified atrial fibrillation
AF with RVR
difficult to control rates due to baseline bradycardia
Now dual camper ICD in place. 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
ICD for cardiac arrest
Will start Eliquis 5 mg BID
CHADSVAsc score is 6 (age, HTN, CHF, CAD, +/- DM)
With cardiac arrest, and now AF, with new LAD stent and ICD along with DAPT and Eliquis, will start Amiodarone.
Amiodarone 150 mg IV x1 now then start 400 mg PO BID for a week then 200mg QD as maintenance.
Discussed with Dr. Baker, Will switch Brilinta to Plavix. Hold Brilinta dose tonight and give Plavix 600mg tomorrow and then 75 mg QD.
--- NOTE | 2025-01-28 16:20 | PTCARENOTE ---
Report from Renetta; rec'd pt back from EP lab AAOx3 w/no c/o CP or SOB. EKG s/p ICD completed. Pt in Afib w/HR in the 110's-120's IV Amiodarone ordered for pt. Assisted pt w/ordering dinner & repositioning. Discussed LUE restrictions & bedrest
restrictions for 1 hr post. Pt verbalized his understanding. Pt w/call unger within reach.
[2025-01-28] MEDS: CORDARONE 103 MG IV (17:18)
[2025-01-28] MEDS: FLUSH (NSS) 4 FLUSH IV (17:19)
[2025-01-28] MEDS: LIPITOR 40 MG TUBE (17:35)
[2025-01-28] MEDS: PACERONE 400 MG PO (22:09)
[2025-01-28] MEDS: ANCEF 5 IV (22:10)
[2025-01-29] VITALS (12 sets, daily range): BP systolic 115–144; BP diastolic 64–95; PULSE 84; O2SAT 95; BMI 27.4
[2025-01-29] MEDS: MELATONIN 5 MG PO ×2 (00:18→22:35)
--- NOTE | 2025-01-29 01:25 | PTCARENOTE ---
Assumed pt care at 2300. PT AFib on TELE monitor. Headache reported by pt Tylenol given as ordered. Pt reported difficulty sleeping rec'd order for melatonin and given as ordered. Plan of care on going. See flowchart and MAR for full pt care
and assessment.
[2025-01-29] MEDS: UNASYN IV ×4 (01:49→20:27)
[2025-01-29 03:43] LABS: Hemoglobin 10.3 g/dL (13.0-18.0); Mean Corp Hgb Conc. 33.2 g/dL (33.0-37.0); Mean Corpuscular Hgb 29.5 pg (27.0-31.0); Mean Corpuscular Volume 88.8 fL (80.0-94.0); Mean Platelet Volume 11.1 fL (7.4-10.4); Platelet Count 159 10^3/uL (130-400); Red Blood Cell Count 3.49 10^6/uL (4.70-6.10); Red Cell Dist. Width 15.3 % (11.5-14.5); White Blood Cell Count 14.7 10^3/uL (4.8-10.8)
[2025-01-29 03:58] LABS: Blood Urea Nitrogen 22 mg/dl (9-20); Calcium 8.1 mg/dl (8.4-10.2); Carbon Dioxide 25 mmol/L (22-30); Chloride 108 mmol/L (98-107); Estimated Creatinine Clearance 49 ml/min; Glucose 165 mg/dl (70-99); Potassium 4.3 mmol/L (3.5-5.1); Sodium 142 mmol/L (135-145); eGFR > 60.00
[2025-01-29] MEDS: ANCEF 5 IV (05:25)
--- NOTE | 2025-01-29 07:45 | PTCARENOTE ---
Assumed care of pt from prev nsg shift; Pt AAOx3 w/c/o 4/10 L upper chest pain r/t recent CPR & AICD placement. PRN Tylenol administered as ordered for pain. Pt w/VSS w/HR in the 90's-100's; BP 1138/95 this AM. Pt is Afib on telemetry monitoring. Pt
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 Plan of care ongoing. Pt w/call unger within reach & no addtl needs at this time.
[2025-01-29] MEDS: LIDOCAINE 4% PATCH 1 PATCH TOPICAL (08:58)
[2025-01-29] MEDS: TYLENOL 650 MG PO ×3 (08:59→22:35)
[2025-01-29] MEDS: PACERONE 400 MG PO ×2 (08:59→20:27)
[2025-01-29] MEDS: LOW STRENGTH ASPIRIN 81 MG TUBE (08:59)
[2025-01-29] MEDS: PLAVIX 600 MG PO (09:04)
--- NOTE | 2025-01-29 10:14 | W.PN.CD ---
Today's Communication / Plan
-
- Continue Amiodarone
- Starting Plavix - bolus 600 mg this AM
- Start Eliquis 5 mg BID
- High risk for bleeding.
Impression / Plan
-
Background: 79M with CAD (CA 2011), Mild LV dysfunction (old LVEF 45-50%), HTN, HLD, GERD, & congenital single kidney presented with cardiac arrest.
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 Brannon
Primary VF arrest; Out of hospital cardiac arrest from VT/VF (no strips from AED)
- Given the lack of STEMI on EKG, lack of significant troponin, and lack of STEMI looking coronary anatomy this is a primary VF arrest
- Secondary prevention ICD on 01/28/25
- On Brilinta and ASA and gave Plavix 600mg this AM to switch to Plavix. Was on heparin also.
- Starting Eliquis with post op ICD incision - high risk for bleeding
- The pressure dressing removed - No bleeding or fluctuation noted. No hematoma so far.
- Keep an eye for pocket hematoma.
Paroxysmal atrial fibrillation
- AF with RVR - Amiodarone started 01/28/25
- Likely PAF with hx of episodes of AF in [place] when he saw fluctuating rates
- Rates are better controlled today
- S/p dual camper ICD in place. 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
- Will start Eliquis 5 mg BID
- CHADSVAsc score is 6 (age, HTN, CHF, CAD, +/- DM)
- With cardiac arrest, and now AF, with new LAD stent and ICD along with DAPT and Eliquis, started Amiodarone on 01/28/25.
- Will switch Brilinta to Plavix. Brilinta discontinued. Plavix 600mg today and then 75 mg QD.
Remote CA
CAD
- Old CA
- LAD stent 01/25/2025 - no culprit lesion.
Mild LV dysfunction, will be updating an echo
Mixed hyperlipidemia, goal LDL now less than 55
Hypertension
Congenital single kidney (right)
Prediabetes, HgbA1c 6.6%
Dyslipidemia, continue statin
Subjective:
Feeling well. Mild pain at the incision without any swelling. Pressure dressing removed.
No active complaints.
Physical Exam
Vital Signs/Labs
Vital Signs
Temp Pulse Resp BP Pulse Ox
98.2 F 94 16 138/95 98
01/29/25 07:17 01/29/25 07:30 01/29/25 07:17 01/29/25 07:17 01/29/25 07:17
01/28/25 01/29/25 01/30/25
06:59 06:59 06:59
Actual Weight 68.6 kg 69.1 kg
01/29/25 01:59
01/29/25 01:59
PT 15.5 Sec (11.4-14.6) H 01/25/25 21:33
INR 1.20 01/25/25 21:33
APTT > 200 Sec (23.4-35.0) H* 01/25/25 21:33
Magnesium 1.9 mg/dl (1.6-2.3) 01/28/25 02:37
Triglycerides 144 mg/dl (10-149) 01/26/25 03:23
LDL Cholesterol, Calc 30 mg/dl 01/26/25 03:23
VLDL Cholesterol, Calc 28 mg/dl (0-30) 01/26/25 03:23
HDL Cholesterol 40 mg/dl 01/26/25 03:23
LAB Results
01/26/25 01/26/25
15:17 19:30
Troponin I 0.470 H* D Cancelled
Physical Exam
Constitutional: No acute distress and Comfortable
EENT: Anicteric and Moist mucous membranes
Cardiovascular: Pedal edema is absent, Rhythm/rate is irregular and Systolic murmur present
Respiratory: Respiratory effort normal, Lungs clear to auscul. and Wheeze Absent
GI: Soft, Non tender and Normal bowel sounds
Neuro/Psych: Alert, Oriented, AO x 3 and Motor deficits absent
Other: Cath Site and Cardiac Device Site
Data Reviewed
-
Date of Service: January 29, 2025
Medical Decision Making: Reviewed Test Results, Test Interpretation and Review of Case with other Provider
Medical Tests (PFT, Pathology etc): Discussed with Physician, Discussed with Patient and Discussed with Family
Labs: Labs Reviewed by me
Old Records: Reviewed
--- NOTE | 2025-01-29 14:35 | W.PN.HOSP.TC ---
Today's Communication/Plan
-
Eliquis
Plavix load
Amiodarone
Monitor on telemetry
Continue to antibiotics
Assessment / Plan
Assessment / Plan
Impression:
Patient is 79 years old with history of hypertension, ischemic cardiomyopathy, hyperlipidemia, coronary artery disease who came to the hospital as [id number]-[id number] cardiac arrest, patient was at [employer] when he collapsed to the ground, AED was
applied and 1 shock was delivered, patient came to the ER and straight to cardiac cath where he had a stent to proximal LAD.
Patient currently intubated and sedated in the ICU
01/27
Patient extubated on 01/26, doing good after extubation.
Plan for AICD possible tuesday.
Assessment/plan:
Drd-wl-etxrjuqa cardiac arrest concern of V-fib arrest
-EKG shows sinus tachycardia with premature supraventricular complexes, subtle ST depressions in V5 V6
- Troponin of 0.039
- Cardiology consulted status post urgent cardiac cath and proximal LAD stent
- CT chest shows marked bilateral dependent subsegmental atelectasis, left posterior eighth rib fracture, cannot exclude mild pulmonary edematous changes
- CT head, cervical spine unremarkable
Currently intubated and sedated in the ICU
Seen by cardiology who recommended AICD for concern of V-fib arrest
-Secondary prevention AICD placement 01/28
�Continue amiodarone
Coronary artery disease status post cardiac cath and stent.
Patient underwent emergent cardiac cath with successful PCI of the tandem 75 to 80% and 50% of proximal LAD lesions
Aspirin, atorvastatin, Brilinta
# Persistent atrial fibrillation
# Dual-chamber ICD in place
� Eliquis 5 mg twice daily
� Will switch Brilinta to Plavix. Brilinta discontinued. Plavix 60 mg today and then 75 mg daily
Severe sepsis with acute organ
Afebrile >48 hours
Possible secondary to aspiration
Patient meets sepsis criteria on admission with tachycardia, leukocytosis.
Organ dysfunction in form of acute hypoxic respiratory failure/ABISAI.
Started on Unasyn for concern of aspiration.
Continue for 7 days --> eventually can be switched to Augmentin
Acute hypoxic respiratory failure secondary to cardiac arrest.
S/p intubation, currently extubated
ABISAI secondary to cardiac arrest
Creatinine improved
Non-anion gap metabolic acidosis
Gap closed
Hypernatremia
Improved
Transaminitis likely secondary to shock liver from cardiac arrest
Improving
Hyperlipidemia
Continue statin
CODE STATUS: Full code
DVT prophylaxis: Eliquis
Family communication: Discussed with family at bedside
Anticipated Discharge: Within 24 hours
Subjective/Interval History
-
Date of Service: January 29, 2025
post procedure, no a cute events
Objective Data
-
Labs:
Laboratory Results
01/29/25
01:59
WBC 14.7 H
Hgb 10.3 L
Hct 31.0 L
Plt Count 159
Sodium 142
Potassium 4.3
Chloride 108 H
Carbon Dioxide 25
BUN 22 H
Creatinine 1.0
Glucose 165 H
Calcium 8.1 L
Vital Signs:
Vital Signs
Temp Pulse Resp BP Pulse Ox
98.1 F 84 16 126/67 95
01/29/25 11:43 01/29/25 14:00 01/29/25 11:43 01/29/25 11:44 01/29/25 11:43
I&O
01/28/25 01/29/25 01/30/25
06:59 06:59 06:59
Intake Total 830 / 830 60 / 60 760 / 760
Output Total 700 / 700 175 / 175 1000 / 1000
Balance 130 / 130 -115 / -115 -240 / -240
Review of Systems
-
History Source: Patient
All other systems: Not reviewed unless documented
Data Reviewed
-
Diagnostic Radiology: Image personally visualized and interpreted and Report Reviewed by me
CT Scan: Image personally visualized and interpreted and Report Reviewed by me
Ultrasound: Image personally visualized and interpreted and Report Reviewed by me
MRI: Image personally visualized and interpreted and Report Reviewed by me
Medical Tests (Nuc Med, Echo etc): Image personally visualized and interpreted and Report Reviewed by me
Labs: Labs Reviewed by me
Old Records: Reviewed
[2025-01-29] MEDS: FLUSH (NSS) 2 FLUSH IV (15:19)
--- NOTE | 2025-01-29 15:20 | CM ---
Reviewed chart. Met with Mr. Anne to review discharge plans. He states he is feeling well and maybe able to go home soon. We reviewed [facility] and he is agreeable to [facility] Services. He has selected [facility]. Telephone call to
[facility] to make the referral. Referral sent. Prior to admission he resides with his spouse in a three story home with seven steps to enter. He has a full flight of steps to get to bedroom/full bathroom. He has a powder room on the
first floor. Prior to admission he was independent with ambulation and adls. He ambulated 50 feet with supervision. He does not have any DME in the home. He has a prescription plan and uses [facility]. Medical work-up in progress. The
discharge plan is to return home with his spouse and [facility].when medically stable.
[2025-01-29] MEDS: LIPITOR 40 MG TUBE (19:00)
[2025-01-29] MEDS: ELIQUIS 5 MG PO (20:27)
[2025-01-30] MEDS: UNASYN IV ×4 (02:08→19:51)
[2025-01-30 03:36] VITALS: BMI 27.9
[2025-01-30 03:39] VITALS: BP 138/81
[2025-01-30 04:17] LABS: Hematocrit 31.3 % (39.0-52.0); Hemoglobin 10.3 g/dL (13.0-18.0); Mean Corp Hgb Conc. 32.9 g/dL (33.0-37.0); Mean Corpuscular Hgb 29.3 pg (27.0-31.0); Mean Corpuscular Volume 88.9 fL (80.0-94.0); Mean Platelet Volume 10.4 fL (7.4-10.4); Platelet Count 190 10^3/uL (130-400); Red Blood Cell Count 3.52 10^6/uL (4.70-6.10); Red Cell Dist. Width 15.4 % (11.5-14.5)
[2025-01-30 04:58] LABS: ALT (SGPT) 67 U/L (0-50); AST (SGOT) 31 U/L (17-59); Albumin 3.4 g/dl (3.5-5.0); Alkaline Phosphatase 49 U/L (38-126); Blood Urea Nitrogen 27 mg/dl (9-20); Calcium 8.4 mg/dl (8.4-10.2); Carbon Dioxide 26 mmol/L (22-30); Chloride 108 mmol/L (98-107); Estimated Creatinine Clearance 44 ml/min; Glucose 123 mg/dl (70-99); Potassium 4.1 mmol/L (3.5-5.1); Sodium 143 mmol/L (135-145); Total Bilirubin 0.9 mg/dl (0.2-1.3); Total Protein 5.9 g/dl (6.3-8.2); eGFR > 60.00
--- NOTE | 2025-01-30 07:54 | W.PN.CD ---
Today's Communication / Plan
-
- Stable for discharge from cardiac stand point.
- Incision check in a week
- EP follow up in 3 months for ICD and AF evaluation.
Impression / Plan
-
Background: 79M with CAD (CT 2011), Mild LV dysfunction (old LVEF 45-50%), HTN, HLD, GERD, & congenital single kidney presented with cardiac arrest.
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
Primary VF arrest; Out of hospital cardiac arrest from VT/VF (no strips from AED)
- Given the lack of STEMI on EKG, lack of significant troponin, and lack of STEMI looking coronary anatomy this is a primary VF arrest
- Secondary prevention ICD on 01/28/25
- On Brilinta and ASA and gave Plavix 600mg this AM to switch to Plavix. Was on heparin also.
- Starting Eliquis with post op ICD incision - high risk for bleeding
- The pressure dressing removed - No bleeding or fluctuation noted. No hematoma so far.
- Keep an eye for pocket hematoma. so far so good.
Paroxysmal atrial fibrillation
- AF with RVR - Amiodarone started 01/28/25
- Likely PAF with hx of episodes of AF in [place] when he saw fluctuating rates
- Rates are better controlled today
- S/p dual camper ICD in place. 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
- On Eliquis 5 mg BID
- CHADSVAsc score is 6 (age, HTN, CHF, CAD, +/- DM)
- With cardiac arrest, and now AF, with new LAD stent and ICD along with DAPT and Eliquis, started Amiodarone on 01/28/25.
-switched Brilinta to Plavix. Brilinta discontinued. Plavix 600mg on 01/29/25 and then [address]
CAD
- Old CT
- LAD stent 01/25/2025 - no culprit lesion.
Mild LV dysfunction, will be updating an echo
Mixed hyperlipidemia, goal LDL now less than 55
Hypertension
Congenital single kidney (right)
Prediabetes, HgbA1c 6.6%
Dyslipidemia, continue statin
Subjective:
Feeling well. Mild pain at the incision without any swelling. mo hematoma.
No active complaints.
Physical Exam
Vital Signs/Labs
Vital Signs
Temp Pulse Resp BP Pulse Ox
98.5 F 90 18 138/81 98
01/30/25 03:40 01/30/25 04:30 01/30/25 03:40 01/30/25 03:39 01/30/25 03:40
01/29/25 01/30/25 01/31/25
06:59 06:59 06:59
Actual Weight 69.1 kg 70.3 kg
01/30/25 03:48
01/30/25 03:48
PT 15.5 Sec (11.4-14.6) H 01/25/25 21:33
INR 1.20 01/25/25 21:33
APTT > 200 Sec (23.4-35.0) H* 01/25/25 21:33
Magnesium 1.9 mg/dl (1.6-2.3) 01/28/25 02:37
Triglycerides 144 mg/dl (10-149) 01/26/25 03:23
LDL Cholesterol, Calc 30 mg/dl 01/26/25 03:23
VLDL Cholesterol, Calc 28 mg/dl (0-30) 01/26/25 03:23
HDL Cholesterol 40 mg/dl 01/26/25 03:23
Physical Exam
Constitutional: No acute distress and Comfortable
EENT: Anicteric and Moist mucous membranes
Cardiovascular: Rhythm & rate is regular, Pedal edema is absent and JVD pressure is normal
Respiratory: Respiratory effort normal, Lungs clear to auscul. and Wheeze Absent
GI: Soft, Distention absent, Non tender and Normal bowel sounds
Neuro/Psych: Alert, Oriented, AO x 3 and Motor deficits absent
Other: Cardiac Device Site
Data Reviewed
-
Date of Service: January 30, 2025
Medical Decision Making: Reviewed Test Results, Test Interpretation and Review of Case with other Provider
EKG: Tracing Personally Visualized and interpreted (going in and out of AF now. )
Echo: Tracing Personally Visualized and interpreted
X-Ray/CT/US/MRI/NUC/PET: Image Personally Visualized and interpreted
Labs: Labs Reviewed by me
Old Records: Reviewed
[2025-01-30 08:16] VITALS: BP 146/68
[2025-01-30] MEDS: ELIQUIS 5 MG PO ×2 (09:07→19:50)
[2025-01-30] MEDS: PACERONE 400 MG PO ×2 (09:07→19:50)
[2025-01-30] MEDS: LOW STRENGTH ASPIRIN 81 MG TUBE (09:07)
[2025-01-30] MEDS: FLUSH (NSS) 2 FLUSH IV (09:08)
[2025-01-30] MEDS: PLAVIX 75 MG PO (09:08)
[2025-01-30] MEDS: LIDOCAINE 4% PATCH 1 PATCH TOPICAL (09:09)
--- NOTE | 2025-01-30 10:24 | CM ---
Reviewed chart. Met with and Mrs. Anne to review discharge plans. He states he is feeling well and maybe able to go home soon. We reviewed [facility] will see him at home. He is agreeable to a home visit. Prior to admission he
resides with his spouse in a three story home with seven steps to enter. He has a full flight of steps to get to bedroom/full bathroom. He has a powder room on the first floor. Prior to admission he was independent with ambulation and adls. He
does not have any DME in the home. He has a prescription and uses [facility]. Medical work-up in progress. The discharge plan is to return home with his spouse and [facility] when medically stable.
[2025-01-30 11:13] VITALS: BP 143/74
--- NOTE | 2025-01-30 11:17 | PTCARENOTE ---
Received patient this morning resting in the bed, assisted to the bathroom and sitting oob in the chair now. Aquacel left upper chest with some scant drainage, no edema noted and patient denies any pain. Call unger in reach, instructed to call for
assistance when getting oob.
--- NOTE | 2025-01-30 14:52 | W.PN.HOSP.TC ---
Today's Communication/Plan
-
Anticoag, antiplatelets
abx
monitor wbc, fever curve
Assessment / Plan
Assessment / Plan
Impression:
Patient is 79 years old with history of hypertension, ischemic cardiomyopathy, hyperlipidemia, coronary artery disease who came to the hospital as [id number]-[id number] cardiac arrest, patient was at [employer] when he collapsed to the ground, AED was
applied and 1 shock was delivered, patient came to the ER and straight to cardiac cath where he had a stent to proximal LAD.
Patient currently intubated and sedated in the ICU
01/27
Patient extubated on 01/26, doing good after extubation.
Assessment/plan:
Xhh-jo-zxnooigh cardiac arrest concern of V-fib arrest
-EKG shows sinus tachycardia with premature supraventricular complexes, subtle ST depressions in V5 V6
- Troponin of 0.039
- Cardiology consulted status post urgent cardiac cath and proximal LAD stent
- CT chest shows marked bilateral dependent subsegmental atelectasis, left posterior eighth rib fracture, cannot exclude mild pulmonary edematous changes
- CT head, cervical spine unremarkable
s/p intubated in ICU
Seen by cardiology who recommended AICD for concern of V-fib arrest
-Secondary prevention AICD placement 01/28
�Continue amiodarone
-- Incision check in a week
- EP follow up in 3 months for ICD and AF evaluation.
Coronary artery disease status post cardiac cath and stent.
Patient underwent emergent cardiac cath with successful PCI of the tandem 75 to 80% and 50% of proximal LAD lesions
Aspirin, atorvastatin, Brilinta
# Persistent atrial fibrillation
# Dual-chamber ICD in place
� Eliquis 5 mg twice daily
� Will switch Brilinta to Plavix. Brilinta discontinued. Plavix 60 mg today and then 75 mg daily
Severe sepsis with acute organ
Afebrile >48 hours
Possible secondary to aspiration
Patient meets sepsis criteria on admission with tachycardia, leukocytosis.
Organ dysfunction in form of acute hypoxic respiratory failure/ABISAI.
Started on Unasyn for concern of aspiration.
Continue for 7 days --> eventually can be switched to Augmentin on DC
#Leukocytosis
-most likely reactive
-monitor fever curve, wbc
Acute hypoxic respiratory failure secondary to cardiac arrest.
S/p intubation, currently extubated
ABISAI secondary to cardiac arrest
Creatinine improved
Non-anion gap metabolic acidosis
Gap closed
Hypernatremia
Improved
Transaminitis likely secondary to shock liver from cardiac arrest
Improving
Hyperlipidemia
Continue statin
CODE STATUS: Full code
DVT prophylaxis: Eliquis
Family communication: Discussed with family at bedside
Anticipated Discharge: Within 24 hours
Subjective/Interval History
-
Date of Service: January 30, 2025
no acute events
Objective Data
-
Labs:
Laboratory Results
01/30/25
03:48
WBC 19.0 H
Hgb 10.3 L
Hct 31.3 L
Plt Count 190
Sodium 143
Potassium 4.1
Chloride 108 H
Carbon Dioxide 26
BUN 27 H
Creatinine 1.1
Glucose 123 H
Calcium 8.4
Total Bilirubin 0.9
AST 31
ALT 67 H
Alkaline Phosphatase 49
Vital Signs:
Vital Signs
Temp Pulse Resp BP Pulse Ox
98.2 F 65 16 143/74 96
01/30/25 11:13 01/30/25 12:30 01/30/25 11:13 01/30/25 11:13 01/30/25 11:13
I&O
01/29/25 01/30/25 01/31/25
06:59 06:59 06:59
Intake Total 60 / 60 760 / 760 120 / 120
Output Total 175 / 175 1000 / 1000
Balance -115 / -115 -240 / -240 120 / 120
Review of Systems
-
History Source: Patient
All other systems: Not reviewed unless documented
Data Reviewed
-
Diagnostic Radiology: Image personally visualized and interpreted and Report Reviewed by me
CT Scan: Image personally visualized and interpreted and Report Reviewed by me
Ultrasound: Image personally visualized and interpreted and Report Reviewed by me
MRI: Image personally visualized and interpreted and Report Reviewed by me
Medical Tests (Nuc Med, Echo etc): Image personally visualized and interpreted and Report Reviewed by me
Labs: Labs Reviewed by me
Old Records: Reviewed
[2025-01-30 15:13] VITALS: BP 122/68
[2025-01-30] MEDS: LIPITOR 40 MG TUBE (17:46)
[2025-01-30 19:42] VITALS: BP 132/70
[2025-01-30 21:59] VITALS: BP 151/80
[2025-01-30] MEDS: TYLENOL 650 MG PO (22:02)
[2025-01-30] MEDS: MELATONIN 5 MG PO (22:02)
[2025-01-31] VITALS (10 sets, daily range): BP systolic 132–162; BP diastolic 70–93; PULSE 81; O2SAT 97
--- NOTE | 2025-01-31 00:53 | PTCARENOTE ---
Patient ambulating self in room. Tele remains Afib. Pt denies any chest pain. Left anterior dressing intact w/ old drainage noted. Patient aware of activity restrictions. He denies any dizziness. Shower completed w/out any complications. Patient
oriented and can make needs known. Call unger in reach.
[2025-01-31] MEDS: UNASYN IV ×4 (02:22→20:15)
[2025-01-31 02:59] LABS: Hematocrit 32.8 % (39.0-52.0); Hemoglobin 10.7 g/dL (13.0-18.0); Mean Corp Hgb Conc. 32.6 g/dL (33.0-37.0); Mean Corpuscular Hgb 29.3 pg (27.0-31.0); Mean Corpuscular Volume 89.9 fL (80.0-94.0); Platelet Count 229 10^3/uL (130-400); Red Blood Cell Count 3.65 10^6/uL (4.70-6.10); Red Cell Dist. Width 15.6 % (11.5-14.5); White Blood Cell Count 18.1 10^3/uL (4.8-10.8)
[2025-01-31 03:20] LABS: ALT (SGPT) 65 U/L (0-50); AST (SGOT) 34 U/L (17-59); Alkaline Phosphatase 51 U/L (38-126); Blood Urea Nitrogen 26 mg/dl (9-20); Calcium 8.3 mg/dl (8.4-10.2); Carbon Dioxide 26 mmol/L (22-30); Chloride 105 mmol/L (98-107); Estimated Creatinine Clearance 41 ml/min; Glucose 121 mg/dl (70-99); Potassium 4.1 mmol/L (3.5-5.1); Sodium 142 mmol/L (135-145); Total Protein 6.4 g/dl (6.3-8.2); eGFR > 60.00
[2025-01-31] MEDS: LOW STRENGTH ASPIRIN 81 MG TUBE (08:40)
[2025-01-31] MEDS: PLAVIX 75 MG PO (08:40)
[2025-01-31] MEDS: ELIQUIS 5 MG PO ×2 (08:40→20:14)
[2025-01-31] MEDS: PACERONE 400 MG PO ×2 (08:40→20:15)
[2025-01-31] MEDS: LIDOCAINE 4% PATCH 1 PATCH TOPICAL (08:41)
[2025-01-31] MEDS: FLUSH (NSS) 2 FLUSH IV (08:42)
--- NOTE | 2025-01-31 10:09 | PTCARENOTE ---
Received patient this morning sitting oob in the chair, remains in AF with rates in the 120's with activity. Patient is hoping to go home today, watching AF/CAD videos. Aquacel dressing is intact left upper chest with scant old drainage which is
unchanged.
--- NOTE | 2025-01-31 12:01 | CM ---
Reviewed chart. Met with and Mrs. Anne to review discharge plans. He states he is feeling well. Prior to admission he resides with his spouse in a three story home with seven steps to enter. He has a full flight of steps to get to bedroom/full
bathroom. He has a powder room on the first floor. Prior to admission he was independent with ambulation and adls. He has a prescription plan and uses [facility]. [facility]. Medical work-up in progress. The
discharge plan is to return home with his spouse and a [facility] when medically stable.
--- NOTE | 2025-01-31 14:29 | W.PN.HOSP.TC ---
Today's Communication/Plan
-
stop tylenol and monitor WBC
Amiodarone, monitor HR
Assessment / Plan
Assessment / Plan
Impression:
Patient is 79 years old with history of hypertension, ischemic cardiomyopathy, hyperlipidemia, coronary artery disease who came to the hospital as [id number] cardiac arrest, patient was at [employer] when he collapsed to the ground, AED was
applied and 1 shock was delivered, patient came to the ER and straight to cardiac cath where he had a stent to proximal LAD.
Patient currently intubated and sedated in the ICU
01/27
Patient extubated on 01/26, doing good after extubation.
Assessment/plan:
Bax-zu-gkrryvoz cardiac arrest concern of V-fib arrest
-EKG shows sinus tachycardia with premature supraventricular complexes, subtle ST depressions in V5 V6
- Troponin of 0.039
- Cardiology consulted status post urgent cardiac cath and proximal LAD stent
- CT chest shows marked bilateral dependent subsegmental atelectasis, left posterior eighth rib fracture, cannot exclude mild pulmonary edematous changes
- CT head, cervical spine unremarkable
s/p intubated in ICU
Seen by cardiology who recommended AICD for concern of V-fib arrest
-Secondary prevention AICD placement 01/28
�Continue amiodarone
-- Incision check in a week
- EP follow up in 3 months for ICD and AF evaluation.
Coronary artery disease status post cardiac cath and stent.
Patient underwent emergent cardiac cath with successful PCI of the tandem 75 to 80% and 50% of proximal LAD lesions
Aspirin, atorvastatin, Brilinta
# Persistent atrial fibrillation
# Dual-chamber ICD in place
� Eliquis 5 mg twice daily
� Will switch Brilinta to Plavix. Brilinta discontinued. Plavix 60 mg today and then 75 mg daily
Severe sepsis with acute organ
Afebrile >48 hours
Possible secondary to aspiration
Patient meets sepsis criteria on admission with tachycardia, leukocytosis.
Organ dysfunction in form of acute hypoxic respiratory failure/ABISAI.
Started on Unasyn for concern of aspiration.
Continue for 7 days --> eventually can be switched to Augmentin on DC
#Leukocytosis
-most likely reactive
-monitor fever curve, wbc
-stop tylenol and monitor
Acute hypoxic respiratory failure secondary to cardiac arrest.
S/p intubation, currently extubated
ABISAI secondary to cardiac arrest
Creatinine improved
Non-anion gap metabolic acidosis
Gap closed
Hypernatremia
Improved
Transaminitis likely secondary to shock liver from cardiac arrest
Improving
Hyperlipidemia
Continue statin
CODE STATUS: Full code
DVT prophylaxis: Eliquis
Family communication: Discussed with family at bedside
Anticipated Discharge: Within 24 hours
Subjective/Interval History
-
Date of Service: January 31, 2025
no acute events
Objective Data
-
Labs:
Laboratory Results
01/31/25
02:38
WBC 18.1 H
Hgb 10.7 L
Hct 32.8 L
Plt Count 229 D
Sodium 142
Potassium 4.1
Chloride 105
Carbon Dioxide 26
BUN 26 H
Creatinine 1.2
Glucose 121 H
Calcium 8.3 L
Total Bilirubin 1.0
AST 34
ALT 65 H
Alkaline Phosphatase 51
Vital Signs:
Vital Signs
Temp Pulse Resp BP Pulse Ox
98.4 F 74 20 139/80 97
01/31/25 11:37 01/31/25 12:00 01/31/25 11:37 01/31/25 11:36 01/31/25 11:37
I&O
01/30/25 01/31/25 02/01/25
06:59 06:59 06:59
Intake Total 760 / 760 700 / 700 360 / 360
Output Total 1000 / 1000
Balance -240 / -240 700 / 700 360 / 360
Review of Systems
-
History Source: Patient
All other systems: Not reviewed unless documented
Data Reviewed
-
Diagnostic Radiology: Image personally visualized and interpreted and Report Reviewed by me
CT Scan: Image personally visualized and interpreted and Report Reviewed by me
Ultrasound: Image personally visualized and interpreted and Report Reviewed by me
MRI: Image personally visualized and interpreted and Report Reviewed by me
Medical Tests (Nuc Med, Echo etc): Image personally visualized and interpreted and Report Reviewed by me
Labs: Labs Reviewed by me
Old Records: Reviewed
[2025-01-31] MEDS: LIPITOR 40 MG TUBE (17:21)
[2025-01-31] MEDS: MELATONIN 5 MG PO (21:45)
[2025-02-01] VITALS (7 sets, daily range): BP systolic 138–166; BP diastolic 68–110; BMI 27.2
[2025-02-01] MEDS: UNASYN IV ×2 (02:59→08:39)
[2025-02-01 04:14] LABS: Hematocrit 31.6 % (39.0-52.0); Hemoglobin 10.5 g/dL (13.0-18.0); Mean Corp Hgb Conc. 33.2 g/dL (33.0-37.0); Mean Corpuscular Hgb 29.2 pg (27.0-31.0); Mean Corpuscular Volume 87.8 fL (80.0-94.0); Platelet Count 209 10^3/uL (130-400); Red Cell Dist. Width 15.4 % (11.5-14.5); White Blood Cell Count 14.8 10^3/uL (4.8-10.8)
[2025-02-01 04:42] LABS: ALT (SGPT) 59 U/L (0-50); AST (SGOT) 30 U/L (17-59); Albumin 3.3 g/dl (3.5-5.0); Alkaline Phosphatase 48 U/L (38-126); Blood Urea Nitrogen 20 mg/dl (9-20); Calcium 8.4 mg/dl (8.4-10.2); Carbon Dioxide 27 mmol/L (22-30); Chloride 106 mmol/L (98-107); Estimated Creatinine Clearance 44 ml/min; Glucose 121 mg/dl (70-99); Potassium 4.1 mmol/L (3.5-5.1); Sodium 140 mmol/L (135-145); Total Bilirubin 1.2 mg/dl (0.2-1.3); Total Protein 5.7 g/dl (6.3-8.2); eGFR > 60.00
[2025-02-01] MEDS: LOW STRENGTH ASPIRIN 81 MG TUBE (08:36)
[2025-02-01] MEDS: ELIQUIS 5 MG PO (08:36)
[2025-02-01] MEDS: PACERONE 400 MG PO (08:37)
[2025-02-01] MEDS: PLAVIX 75 MG PO (08:37)
[2025-02-01] MEDS: LIDOCAINE 4% PATCH TOPICAL ×2 (08:38→08:45)
--- NOTE | 2025-02-01 10:25 | PTCARENOTE ---
Pt offers no complaints, ambulating in room, sitting oob in chair. L chest wall dsg D+I. R radial site NIELS clean, dry and intact.
--- NOTE | 2025-02-01 11:59 | W.PN.HOSP.TC ---
Addendum entered and electronically signed by Sy Millan MD 02/02/25 15:59:
[id number]
Original Note:
Today's Communication/Plan
-
You will take aspirin 81mg daily, plavix 75mg daily and eliquis 5mg twice a day for 1 week(starting from 01/30/25) , then STOP aspirin and remain on plavix/eliquis only.
Amiodarone will be 400mg twice a day (2 tablets, twice a day) for 1 week (from 01/30/25), then decrease to 200mg daily (1 tablet once a day)
Incision check in 1 week
EP follow up in 3 months for ICD and AF evaluation.
Augmentin x 1 more day
F/u Cards, PCP outpatient
Assessment / Plan
Assessment / Plan
Impression:
Patient is 79 years old with history of hypertension, ischemic cardiomyopathy, hyperlipidemia, coronary artery disease who came to the hospital as [id number] cardiac arrest, patient was at [employer] when he collapsed to the ground, AED was
applied and 1 shock was delivered, patient came to the ER and straight to cardiac cath where he had a stent to proximal LAD.
Patient currently intubated and sedated in the ICU
01/27
Patient extubated on 01/26, doing good after extubation.
Assessment/plan:
[id number] cardiac arrest concern of V-fib arrest
-EKG shows sinus tachycardia with premature supraventricular complexes, subtle ST depressions in V5 V6
- Troponin of 0.039
- Cardiology consulted status post urgent cardiac cath and proximal LAD stent
- CT chest shows marked bilateral dependent subsegmental atelectasis, left posterior eighth rib fracture, cannot exclude mild pulmonary edematous changes
- CT head, cervical spine unremarkable
s/p intubated in ICU
Seen by cardiology who recommended AICD for concern of V-fib arrest
-Secondary prevention AICD placement 01/28
�Continue amiodarone
-- Incision check in a week
- EP follow up in 3 months for ICD and AF evaluation.
Coronary artery disease status post cardiac cath and stent.
Patient underwent emergent cardiac cath with successful PCI of the tandem 75 to 80% and 50% of proximal LAD lesions
Aspirin, plavix x 1 week - then plavix along with Eliquis
# Persistent atrial fibrillation
# Dual-chamber ICD in place
� Eliquis 5 mg twice daily
� Will switch Brilinta to Plavix. Brilinta discontinued. Plavix 60 mg today and then 75 mg daily
Severe sepsis with acute organ
Afebrile >48 hours
Possible secondary to aspiration
Patient meets sepsis criteria on admission with tachycardia, leukocytosis.
Organ dysfunction in form of acute hypoxic respiratory failure/ABISAI.
Started on Unasyn for concern of aspiration.
Continue for 7 days --> eventually can be switched to Augmentin on DC (1 more day)
#Leukocytosis
-most likely reactive
-monitor fever curve, wbc
-stop tylenol and monitor - stable
- no evidence of infection
-monitor cbc outptatient
-patient/family advised on infectious symptoms
Acute hypoxic respiratory failure secondary to cardiac arrest.
S/p intubation, currently extubated
ABISAI secondary to cardiac arrest
Creatinine improved
Non-anion gap metabolic acidosis
Gap closed
Hypernatremia
Improved
Transaminitis likely secondary to shock liver from cardiac arrest
Improving
Hyperlipidemia
Continue statin
CODE STATUS: Full code
DVT prophylaxis: Eliquis
Family communication: Discussed with family at bedside
More than 30 minutes spent in discharge including
Final examination of the patient
Summarizing hospital stay
Instructions for continuing care to all relevant caregivers
Preparation of discharge records, prescriptions, and referral forms
Total time spent (in minutes): 36
Anticipated Discharge: Today
Subjective/Interval History
-
Date of Service: February 01, 2025
No acute events overnight
Objective Data
-
Labs:
Laboratory Results
02/01/25
03:34
WBC 14.8 H
Hgb 10.5 L
Hct 31.6 L
Plt Count 209
Sodium 140
Potassium 4.1
Chloride 106
Carbon Dioxide 27
BUN 20
Creatinine 1.1
Glucose 121 H
Calcium 8.4
Total Bilirubin 1.2
AST 30
ALT 59 H
Alkaline Phosphatase 48
Vital Signs:
Vital Signs
Temp Pulse Resp BP Pulse Ox
98.6 F 90 16 145/86 95
02/01/25 07:58 02/01/25 11:00 02/01/25 07:58 02/01/25 07:56 02/01/25 08:11
I&O
01/31/25 02/01/25 02/02/25
06:59 06:59 06:59
Intake Total 700 / 700 1360 / 1360 240 / 240
Output Total 1275 / 1275
Balance 700 / 700 85 / 85 240 / 240
Review of Systems
-
History Source: Patient
All other systems: Not reviewed unless documented
Physical Exam
-
General: Well Developed, Well Nourished, No Apparent Distress and Comfortable
HEENT: Normocephalic, Atraumatic, Moist Mucous Membranes, No Ptosis, PERRLA and Nose Appears Normal
Respiratory: Rales, Rhonchi and Crackles
Cardiac: Regular Rhythm, S1/S2 and Other (Chest wall tenderness)
Breast: Deferred by me
GI: Soft, Nontender, Nondistended and Normal Bowel Sounds
Genito-urinary: No Costovertebral Tender
Musculoskeletal: No Clubbing, No Cyanosis and No Edema
Skin: Warm
Neuro: Awake, Alert, Oriented, AO x 3 and No Motor Deficits
Psych: Calm
Data Reviewed
-
Diagnostic Radiology: Image personally visualized and interpreted and Report Reviewed by me
CT Scan: Image personally visualized and interpreted and Report Reviewed by me
Ultrasound: Image personally visualized and interpreted and Report Reviewed by me
MRI: Image personally visualized and interpreted and Report Reviewed by me
Medical Tests (Nuc Med, Echo etc): Image personally visualized and interpreted and Report Reviewed by me
Labs: Labs Reviewed by me
Old Records: Reviewed
--- NOTE | 2025-02-01 12:05 | W.DS.TRANS ---
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
-
Discharge Instructions:
Discharge Diagnosis/Procedures Angioplasty and stent to Left Anterior
Descending artery (01/25)
ICD implant (01/28)
V-fib arrest
Persistent atrial fibrillation
Acute hypoxic respiratory failure secondary to
cardiac arrest.
Pneumonia
ABISAI
Diet Low Fat,Low Cholesterol
Activity As tolerated
Driving Restrictions No driving
Blood Work cbc and bmp in 3 days with PCP
Instructions:
Stand-Alone Forms: DC Instructions- Cath/EP Lab
DC Inst - Implanted Device
Changes to Home Medications: Yes
Discharge Medications:
DC Medications w/original date entered in [facility]
losartan 25 mg tablet 25 mg PO DAILY 30 days #30 tabs 01/20/18
atorvastatin 80 mg tablet 80 mg PO QPM 01/25/25
ezetimibe 10 mg tablet 10 mg PO DAILY 01/25/25
amiodarone 200 mg tablet 400 mg (2 x 200 mg) PO BID #50 tabs 01/28/25
apixaban 5 mg tablet (Eliquis) 5 mg PO BID #60 tabs 01/28/25
aspirin 81 mg tablet,delayed release 81 mg PO DAILY #0 tabs 01/28/25
clopidogrel 75 mg tablet 75 mg PO DAILY #30 tabs 01/28/25
amoxicillin 875 mg-potassium clavulanate 125 mg tablet 1 tab PO Q12H 1 day #2 tabs 02/01/25
Home Medication Changes
amiodarone 200 mg tablet 400 mg (2 x 200 mg) PO BID #50 tabs 01/28/25
apixaban 5 mg tablet (Eliquis) 5 mg PO BID #60 tabs 01/28/25
aspirin 81 mg tablet,delayed release 81 mg PO DAILY #0 tabs 01/28/25
clopidogrel 75 mg tablet 75 mg PO DAILY #30 tabs 01/28/25
amoxicillin 875 mg-potassium clavulanate 125 mg tablet 1 tab PO Q12H 1 day #2 tabs 02/01/25
Pending Results: No
--- NOTE | 2025-02-01 12:10 | CM ---
Reviewed chart. Met with Mr. Anne to review discharge plans. He states he is feeling well and maybe able to go home soon. We reviewed [facility] with him. He is still agreeable to home care services. Prior to admission he resides
with his spouse in a three story home with seven steps to enter. He has a full flight of steps to get to bedroom/full bathroom. He has a powder room on the first floor. Prior to admission he was independent with ambulation and adls. He does not
have any DME in the home. He has a prescription plan and uses [facility].. Medical work-up in progress. The discharge plan is to return home with his spouse and [facility] when medically stable.
== END 2025-02-01 14:10 | disposition home or self-care (01) | DRG 275 ==
LOC: IVU 18:06
PROVIDERS: Internal Medicine Cardiovascular Disease; Nurse Practitioner; Nurse Practitioner Family; Registered Nurse; ADMITTING PHYSICIAN Hospitalist; ATTENDING PHYSICIAN Internal Medicine; CONSULT PHYSICIAN Internal Medicine Cardiovascular Disease; CONSULT PHYSICIAN Internal Medicine Critical Care Medicine; CONSULT PHYSICIAN Psychiatry & Neurology Neurology; CONSULT PHYSICIAN Surgery; EMERGENCY PHYSICIAN Emergency Medicine
PROC: 5A1935Z Respiratory Ventilation, Less than 24 Consecutive Hours (ICD-10-PCS; 2025-01-25)
PROC: 4A023N7 Measurement of Cardiac Sampling and Pressure, Left Heart, Percutaneous Approach (ICD-10-PCS; 2025-01-25)
PROC: 0BH17EZ Insertion of Endotracheal Airway into Trachea, Via Natural or Artificial Opening (ICD-10-PCS; 2025-01-25)
PROC: B2111ZZ Fluoroscopy of Multiple Coronary Arteries using Low Osmolar Contrast (ICD-10-PCS; 2025-01-25)
PROC: B240ZZ3 Ultrasonography of Single Coronary Artery, Intravascular (ICD-10-PCS; 2025-01-25)
PROC: 027034Z Dilation of Coronary Artery, One Artery with Drug-eluting Intraluminal Device, Percutaneous Approach (ICD-10-PCS; 2025-01-25)
PROC: 0JH609Z Insertion of Cardiac Resynchronization Defibrillator Pulse Generator into Chest Subcutaneous Tissue and Fascia, Open Approach (ICD-10-PCS; 2025-01-28)
PROC: 02HK3KZ Insertion of Defibrillator Lead into Right Ventricle, Percutaneous Approach (ICD-10-PCS; 2025-01-28)
PROC: 02H63KZ Insertion of Defibrillator Lead into Right Atrium, Percutaneous Approach (ICD-10-PCS; 2025-01-28)
DX: I49.01 Ventricular fibrillation (principal); A41.9 Sepsis, unspecified organism; J96.01 Acute respiratory failure with hypoxia; J69.0 Pneumonitis due to inhalation of food and vomit; K72.00 Acute and subacute hepatic failure without coma; R65.20 Severe sepsis without septic shock; E87.0 Hyperosmolality and hypernatremia; N17.9 Acute kidney failure, unspecified; E87.20 Acidosis, unspecified; Q60.0 Renal agenesis, unilateral; J98.11 Atelectasis; I46.2 Cardiac arrest due to underlying cardiac condition; I48.19 Other persistent atrial fibrillation; I25.10 Atherosclerotic heart disease of native coronary artery without angina pectoris; H91.93 Unspecified hearing loss, bilateral; N40.0 Benign prostatic hyperplasia without lower urinary tract symptoms; I49.5 Sick sinus syndrome; I25.5 Ischemic cardiomyopathy; I11.0 Hypertensive heart disease with heart failure; I50.9 Heart failure, unspecified; K21.9 Gastro-esophageal reflux disease without esophagitis; I25.82 Chronic total occlusion of coronary artery; R73.03 Prediabetes; E78.2 Mixed hyperlipidemia; S01.01XA Laceration without foreign body of scalp, initial encounter; W17.89XA Other fall from one level to another, initial encounter; D64.9 Anemia, unspecified; I77.810 Thoracic aortic ectasia; I25.2 Old myocardial infarction; Z79.82 Long term (current) use of aspirin; Z79.899 Other long term (current) drug therapy; Z82.49 Family history of ischemic heart disease and other diseases of the circulatory system; Z86.12 Personal history of poliomyelitis; Z95.5 Presence of coronary angioplasty implant and graft
CPT/HCPCS: 31500; 33249; 36600; 43752; 70450; 71045; 71250; 72125; 80048; 80053; 80061; 81003; 81015; 82248; 82805; 82962; 83036; 83735; 84100; 84478; 84484; 85014; 85018; 85025; 85027; 85347; 85610; 85730; 87040; 87070; 87086; 87205; 87449; 87899; 92526; 92610; 92978; 93005; 93306; 93458; 94002; 94003; 96365; 96375; 97116; 97162; 97167; 97530; 97535; 99152; 99153; 99291; C1721; C1725; C1753; C1777; C1874; C1892; C1894; C1898; C9600; Q9967

== ENCOUNTER → 2025-02-05 11:10 | Outpatient (REF) | payer MEDICARE, OTHER, SELFPAY | LOC: HWRAD 11:10 | PROVIDERS: ATTENDING PHYSICIAN Family Medicine; REFERRING PHYSICIAN Internal Medicine Cardiovascular Disease | DX: J18.9 Pneumonia, unspecified organism (principal) | CPT/HCPCS: 71046 ==

== ENCOUNTER 2025-02-08 15:16 | Emergency (ER) | payer MEDICARE, OTHER, SELFPAY ==
[2025-02-08] VITALS (9 sets, daily range): BP systolic 122–162; BP diastolic 63–76; BMI 27.0
--- NOTE | 2025-02-08 17:06 | EDRN ---
Received patient on stretcher. Patient s/p cardiac arrest 2 weeks ago. Patient stated that his voice has been hoarse for the past week and today coughed up blood. Patient stated that he is able to swallow with minimal difficulty. Patient's
stated that the patient has lost 6-7 lbs this past week. Denies c/o SOB and chest pain.
[2025-02-08 17:10] LABS: % Basophils 0.5 % (0-2); % Eosinophils 2.1 % (0-6); % Immature Granulocytes 1.7 % (0-0.5); % Lymphocytes 12.4 % (20.5-51.1); % Monocytes 8.8 % (1.7-9.3); % Neutrophils 74.5 % (42.2-75.2); Absolute Basophils 0.1 10^3/uL (0-0.2); Absolute Eosinophils 0.4 10^3/uL (0-0.7); Absolute Immature Granulocytes 0.3 10^3/uL (0-0.05); Absolute Lymphocytes 2.2 10^3/uL (1.2-3.4); Absolute Monocytes 1.6 10^3/uL (0.1-0.6); Absolute Neutrophils 13.2 10^3/uL (1.4-6.5); Hematocrit 36.1 % (39.0-52.0); Hemoglobin 11.6 g/dL (13.0-18.0); Mean Corp Hgb Conc. 32.1 g/dL (33.0-37.0); Mean Corpuscular Hgb 29.3 pg (27.0-31.0); Mean Corpuscular Volume 91.2 fL (80.0-94.0); Mean Platelet Volume 9.6 fL (7.4-10.4); Nucleated Red Blood Cells % 0 % (-); Platelet Count 337 10^3/uL (130-400); Red Blood Cell Count 3.96 10^6/uL (4.70-6.10); Red Cell Dist. Width 15.7 % (11.5-14.5); White Blood Cell Count 17.7 10^3/uL (4.8-10.8)
[2025-02-08 17:22] LABS: PT 16.5 Sec (11.4-14.6)
[2025-02-08 17:35] LABS: ALT (SGPT) 30 U/L (0-50); AST (SGOT) 24 U/L (17-59); Albumin 4.2 g/dl (3.5-5.0); Alkaline Phosphatase 104 U/L (38-126); Blood Urea Nitrogen 35 mg/dl (9-20); Calcium 8.6 mg/dl (8.4-10.2); Carbon Dioxide 28 mmol/L (22-30); Chloride 105 mmol/L (98-107); Estimated Creatinine Clearance 31 ml/min; Glucose 113 mg/dl (70-99); Potassium 4.8 mmol/L (3.5-5.1); Sodium 141 mmol/L (135-145); Total Bilirubin 0.8 mg/dl (0.2-1.3)
--- NOTE | 2025-02-08 17:43 | ED.GENMED ---
History of Present Illness
General
Chief Complaint: Cough
Time Seen by Provider: 02/08/25 17:18
History of Present Illness
History of Present Illness:
TIME OF INITIAL ENCOUNTER: 5:45 PM
HPI: I reviewed records, the patient was seen here as a cardiac arrest (V-fib arrest) patient and had LAD stent and ICD placed 01/25 and 01/28 respectively. He was intubated. He left hospital doing well; now w/ blood tinged sputum, and may be some
discomfort in lower anterior neck. He had also lost about 6 pounds over the last week or so.
EXAM
GENERAL: Well appearing in no distress
HEENT: Moist oral mucosa, hoarse voice noted
CARDIOVASCULAR: No murmurs, normal heart rate, regular rhythm, No chest wall tenderness
PULMONARY: No respiratory distress, breath sounds are fairly clear
ABDOMEN: Soft with no peritoneal signs, no tenderness
NEUROLOGIC: Excellent strength all extremities, no coordination deficits
PSYCHIATRIC: Appropriate mental status, normal insight and judgement
EXTREMITIES: Nontender, no edema, moves all extremities equally
SKIN: No rash, no lesions
NUMBER AND COMPLEXITY OF PROBLEMS ADDRESSED AT THE ENCOUNTER
� Chronic conditions affecting care: Cardiac arrest 2024, CAD
� Acute Exacerbation and/or Progression of Chronic Illness: This is an acute problem
� Differential Diagnosis includes: Viral syndrome, pneumonia, very low suspicion for bacterial etiology
AMOUNT AND/OR COMPLEXITY OF DATA TO BE REVIEWED AND ANALYZED
� I performed an independent evaluation of and my interpretation is:
EKG:
CT:
X-rays: Chest x-ray suggests some groundglass opacification in the medial aspect of the right lung which is new comparison to prior by my read. Soft tissue neck relatively unremarkable
Laboratory Studies: White count 17.7 (of note white count has been ranging from 13-19 this past month)
Other:
� Review of other/old records: I reviewed the discharge summary from the cardiac arrest event earlier this month
� Clinical information was obtained by an independent historian: I spoke to at bedside
� Prescriptions/Medications Considered but not given:
� Further testing considered but not performed:
RISK OF COMPLICATIONS AND/OR MORBIDITY OR MORTALITY OF PATIENT MANAGEMENT
� Social determinants of health affecting care: Lives at home
� Discussion with other providers:
� Escalation of care including admission/observation vs risk of discharge considered: The patient does not feel that he needs to stay in the hospital. Only questionable signs of pneumonia. However he is found to have worsening
renal function and has a solitary kidney. We did give IV fluids to ensure hydration and I encouraged him to try to increase his fluid intake.
ANY OTHER UPDATES:
Past History
Past History
ED Past Medical History: CAD, Cancer (skin), GERD, Hypercholesterolemia, MT and Other (cardiac arrest , congenital single right kidney, rectal bleed, polio as child)
ED Past Surgical History: Appendectomy, Cardiac (stenting ), Orthopedic (right shoulder 2017, right ABHI 2022), Urological (TURP ) and Other (skin CA excision)
Social History
Tobacco: Non-smoker
Alcohol: None
Personal:
Living: with family
Family History
Family History: CAD and Other (reviewed and non-contributory)
Phy Exam
Physical Exam
Physical Exam:
See HPI
Course
Orders/Labs/Results
Orders:
Orders
02/08/25 17:00
CMP [Comprehensive Metabolic Panel] Urgent
Complete Blood Count/With Diff Urgent
Prothrombin Time Urgent
02/08/25 17:48
CR Chest - 2 Views Urgent
Comment:
Reason For Exam: cough
CR Soft Tissue Neck Urgent
Comment:
Reason For Exam: pain after intubation
02/08/25 20:05
0.9% Sodium Chloride 1000 ml [Nss] 1,000 ml IV BOLUS
02/08/25 20:33
Amoxicillin 875 mg/Clav 125 mg [Augmentin 875 mg/125 mg] 1 tablet PO NOW STA
02/08/25 20:35
Amoxicillin 875 mg/Clav 125 mg [Augmentin 875 mg/125 mg] 1 tablet PO NOW STA
Abnormal Lab Results
02/08/25
17:00
WBC 17.7 H 10^3/uL
(4.8-10.8)
RBC 3.96 L 10^6/uL
(4.70-6.10)
Hgb 11.6 L g/dL
(13.0-18.0)
Hct 36.1 L %
(39.0-52.0)
MCHC 32.1 L g/dL
(33.0-37.0)
RDW 15.7 H %
(11.5-14.5)
Abs Immat Gran (auto) 0.3 H 10^3/uL
(0-0.05)
Absolute Neuts (auto) 13.2 H 10^3/uL
(1.4-6.5)
Absolute Monos (auto) 1.6 H 10^3/uL
(0.1-0.6)
Immature Gran % 1.7 H %
(0-0.5)
Lymphocytes % 12.4 L %
(20.5-51.1)
PT 16.5 H Sec
(11.4-14.6)
BUN 35 H mg/dl
(9-20)
Creatinine 1.6 H mg/dL
(0.7-1.3)
Glucose 113 H mg/dl
(70-99)
02/08/25 17:00
02/08/25 17:00
Vital Signs
Initial and Last Documented VS:
Initial Vital Signs
Temp Pulse Resp BP Pulse Ox
36.8 C 65 18 162/76 98
02/08/25 15:28 02/08/25 15:28 02/08/25 15:28 02/08/25 15:28 02/08/25 15:28
Last Documented Vital Signs
Temp Pulse Resp BP Pulse Ox
36.8 C 78 20 150/73 96
02/08/25 15:28 02/08/25 21:00 02/08/25 21:00 02/08/25 21:10 02/08/25 21:12
*Critical Care Note
Total Time (30-74mins, 75-104mins- exclusive of procedures): Not Applicable
ED Attending Note
-
Portions of this chart may have been created with voice recognition software.� Occasional wrong word or��sound alike� substitutions may have occurred due to the inherent limitations of voice recognition software.
Discharge Plan
Departure
Patient Disposition: Home (Routine Discharge)
Date of Disposition: 02/08/25
Time of Disposition: 20:32
Patient with high blood pressure during this ER visit?: Yes
Discharge Problem:
Pneumonia, ABISAI (acute kidney injury)
Prescriptions:
New
amoxicillin-pot clavulanate 875-125 mg tablet
1 tab PO BID Qty: 14 0RF
No Action
losartan 25 MG tablet
25 mg PO DAILY 30 Days Qty: 30 11RF
atorvastatin 80 mg Tablet
80 mg PO QPM
ezetimibe 10 mg Tablet
10 mg PO DAILY
Eliquis 5 mg Tablet
5 mg PO BID Qty: 60 11RF
amiodarone 200 mg Tablet
400 mg PO BID Qty: 50 11RF
Rx Instructions:
400mg BID for 1 week (2 tablets twice a day), then decrease to 200mg daily (1 tablet once a day)
clopidogrel 75 mg Tablet
75 mg PO DAILY Qty: 30 11RF
aspirin 81 MG tablet,delayed release (DR/EC)
81 mg PO DAILY Qty: 0 0RF
Rx Instructions:
Take for 7 days, then STOP
amoxicillin-pot clavulanate 875-125 mg tablet
1 tab PO Q12H 1 Days Qty: 2 0RF
Referrals:
Robert Raza, DO [Family Provider] -
Activity Restrictions/Additional Instructions:
You were given IV fluids tonight. Your white blood cell count is high but has been high every time it was checked in January. I do question the possibly of pneumonia on the right side. We can put you back on Augmentin. Be sure to try to stay
hydrated. Return here if worse or other concerns.
Interventions
Interventions:
*Risk Screen - Suicide Last Done: 02/08/25 15:28
*General Assessment Last Done: 02/08/25 15:28
*Neglect/Abuse Screening Last Done: 02/08/25 15:28
*ED- Fall Risk Assessment Last Done: 02/08/25 19:19
*ED COVID-19 Vaccine History Last Done: 02/08/25 16:54
*Nursing Disposition Last Done: 02/08/25 21:27
ED- Pulmonary Assessment Last Done: 02/08/25 16:54
Discharge Date and Time
Discharge Date/Time: 02/08/25 21:28
Print Language: BELGIAN
[2025-02-08] MEDS: NSS 1000 IV (20:44)
[2025-02-08] MEDS: AUGMENTIN 875 MG/125 MG 1 TABLET PO (20:45)
== END 2025-02-08 21:28 | disposition home or self-care (01) ==
LOC: EMR 15:16
PROVIDERS: EMERGENCY PHYSICIAN Emergency Medicine; FAMILY PHYSICIAN Family Medicine
DX: J18.9 Pneumonia, unspecified organism (principal); N17.9 Acute kidney failure, unspecified; I48.91 Unspecified atrial fibrillation; I25.10 Atherosclerotic heart disease of native coronary artery without angina pectoris; K21.9 Gastro-esophageal reflux disease without esophagitis; E78.00 Pure hypercholesterolemia, unspecified; I25.2 Old myocardial infarction; A80.9 Acute poliomyelitis, unspecified; Z82.49 Family history of ischemic heart disease and other diseases of the circulatory system; Z85.828 Personal history of other malignant neoplasm of skin; Z86.74 Personal history of sudden cardiac arrest; Z86.79 Personal history of other diseases of the circulatory system; Z90.49 Acquired absence of other specified parts of digestive tract; Z90.79 Acquired absence of other genital organ(s); Z95.5 Presence of coronary angioplasty implant and graft; Z95.810 Presence of automatic (implantable) cardiac defibrillator
CPT/HCPCS: 99283; 96360; 70360; 71046; 80053; 85025; 85610

== ENCOUNTER 2025-03-06 09:48 | Day surgery (SDC) | payer MEDICARE, SELFPAY | END 2025-03-06 12:23 | disposition home or self-care (01) | LOC: CATH 09:48 | PROVIDERS: ATTENDING PHYSICIAN Internal Medicine; FAMILY PHYSICIAN Family Medicine; OTHER PHYSICIAN Internal Medicine Cardiovascular Disease | DX: I48.19 Other persistent atrial fibrillation (principal); I25.10 Atherosclerotic heart disease of native coronary artery without angina pectoris; E78.5 Hyperlipidemia, unspecified; I25.5 Ischemic cardiomyopathy; I42.9 Cardiomyopathy, unspecified; Z95.810 Presence of automatic (implantable) cardiac defibrillator; K21.9 Gastro-esophageal reflux disease without esophagitis; I25.2 Old myocardial infarction; N40.0 Benign prostatic hyperplasia without lower urinary tract symptoms; Z79.01 Long term (current) use of anticoagulants; Z79.02 Long term (current) use of antithrombotics/antiplatelets | CPT/HCPCS: 92960; 93005 ==

== ENCOUNTER → 2025-07-22 10:59 | Outpatient (REF) | payer MEDICARE, OTHER, SELFPAY | LOC: RCS 10:59 | PROVIDERS: ATTENDING PHYSICIAN Internal Medicine Cardiovascular Disease; FAMILY PHYSICIAN Family Medicine | DX: I49.01 Ventricular fibrillation (principal) | CPT/HCPCS: 93306 ==

== ENCOUNTER → 2025-08-27 13:04 | Outpatient (REF) | payer MEDICARE, OTHER, SELFPAY | LOC: RAD 13:04 | PROVIDERS: ATTENDING PHYSICIAN Physician Assistant Medical; FAMILY PHYSICIAN Family Medicine | DX: M54.2 Cervicalgia (principal); M25.511 Pain in right shoulder; M54.6 Pain in thoracic spine; M54.50 Low back pain, unspecified | CPT/HCPCS: 36415; 72052; 72072; 72110; 73030 ==